=== PATIENT | male | born 1950 | race Hispanic/Latino ===

== ENCOUNTER 2018-03-31 03:44 | Inpatient (IN) | payer BC, MEDICARE ==
[2018-03-31 03:44] VITALS: PULSE 67
[2018-03-31 03:52] VITALS: BMI 36.6
--- NOTE | 2018-03-31 05:34 | ED PDOC ---
Arrival/HPI - General Chief Complaint: Lower Extremity Problem/Injury Time Seen by Provider: 03/31/18 04:09 Historian: Patient - History of Present Illness Narrative History of Present Illness (Text): 03/31/18 05:29 A 67 year old male, whose past medical history includes rheumatoid arthritis, presents to the emergency department complaining of right foot pain starting tonight. Patient reports 3 weeks ago he noticed his foot/ankle and fingers to be swollen. Patient has noticeable blue color to the area, however he states that the coloring is due to his blanket's dye job. Otherwise, since pain/swelling, symptoms worsened. States he took Tylenol Extra Strength and was having relief. However, tonight pain felt worse than usual and he took 2 pills instead of 1, and pain became much worse. He mentions he is unable to put pressure on his right foot in order to ambulate. At this time, while laying in the bed, feels throbbing sensation to foot/ankle. Patient denies any other complaints at this time. NKDA. Past Medical History - Provider Review Nursing Documentation Reviewed: Yes - Infectious Disease Hx of Infectious Diseases: None - Cardiac Hx Cardiac Arrhythmia: Yes (A fib) Hx Pacemaker: No Other/Comment: hx cardioversion - Pulmonary Hx Respiratory Disorders: No - Neurological Hx Paralysis: No - Hematological/Oncological Hx Blood Transfusions: No Hx Blood Transfusion Reaction: No - Musculoskeletal/Rheumatological Hx Musculoskeletal Disorders: Yes (RA) - Gastrointestinal Other/Comment: colonoscopy with 2 polyps removed - Psychiatric Hx Anxiety: Yes Hx Depression: Yes Hx Substance Use: No - Surgical History Other/Comment: small mass removed from back - Anesthesia Hx Anesthesia Reactions: No Hx Malignant Hyperthermia: No - Suicidal Assessment Feels Threatened In Home Enviroment: No Family/Social History - Physician Review Nursing Documentation Reviewed: Yes Family/Social History: No Known Family HX Smoking Status: Unknown If Ever Smoked Hx Alcohol Use: No Hx Substance Use: No Allergies/Home Meds Allergies/Adverse Reactions: Allergies No Known Allergies Allergy (Verified 01/05/13 11:27) Home Medications: Home Meds Medication Instructions Recorded Confirmed Unobtainable 03/31/18 03/31/18 Review of Systems - Physician Review All systems were reviewed & negative as marked: Yes - Review of Systems Constitutional: absent: Fevers Musculoskeletal: Other (right foot pain/swelling; bilateral finger swelling) Physical Exam - Physical Exam Narrative Physical Exam (Text): Gen: VS reviewed, alert, well developed, well nourished, nontoxic, mild distress. ENT: normal pharynx. Eye: EOMI, PERRL. Neck: no JVD, supple, no adenopathy. CV: regular rate, regular rhythm, no rubs, no murmur, no gallops, S1, S2, pulses equal and strong. Pulm: no distress, clear to auscultation, no wheeze, no rhonchi, breath sounds equal, no rales. Abd: soft, nontender, no guarding, no rebound, no rigidity, normal bowel sounds. Ext: questionable edema to right medial ankle area, pain with active plantar flexion of right foot, normal pulses, large callus to lateral aspect of right foot. Skin: good color, no rash, no cyanosis. Psych: responds appropriately to questions, normal affect. Neuro: oriented x 3, CN2-12 intact grossly, motor intact, sensation intact. Vital Signs Temp Pulse Resp BP Pulse Ox 03/31/18 03:52 97.5 F L 106 H 18 152/82 H 97 Medical Decision Making ED Course and Treatment: 03/31/18 05:38 Impression: 67 year old male with right foot/ankle pain. Plan: -- Reassess and disposition Progress Notes: 03/31/18 07:[address] rajan, patient to be admitted for monarticular arthritis. patient found to have a very high wbc. recoommend ortho consult, potential joint aspiration to rule out septic arthritis. - Scribe Statement The provider has reviewed the documentation as recorded by the Miguel Khan Provider Scribe Attestation: All medical record entries made by the Scribjohnna were at my direction and personally dictated by me. I have reviewed the chart and agree that the record accurately reflects my personal performance of the history, physical exam, medical decision making, and the department course for this patient. I have also personally directed, reviewed, and agree with the discharge instructions and disposition. Disposition/Present on Arrival - Present on Arrival Any Indicators Present on Arrival: No History of DVT/PE: No History of Uncontrolled Diabetes: No Urinary Catheter: No History of Decub. Ulcer: No History Surgical Site Infection Following: None - Disposition Have Diagnosis and Disposition been Completed?: Yes Diagnosis: Monoarticular arthritis Disposition: HOSPITALIZED Disposition Time: 07:46 Patient Plan: Admission Condition: STABLE Forms: [employer] (Faroese)
[2018-03-31 06:48] LABS: BASO # 0.02 K/mm3 (0.0-2.0); BASO % 0.1 % (0.0-3.0); GRAN # 18.19 (1.4-6.5); GRAN % 90.1 % (50.0-68.0); HEMOGLOBIN 15.5 g/dL (14.0-18.0); LYMPH # 0.5 (1.2-3.4); LYMPH % 2.5 % (22.0-35.0); MEAN CELL VOLUME 92.4 fl (80.0-105.0); MEAN CORPUSCULAR HEMOGLOBIN 30.9 pg (25.0-35.0); MEAN CORPUSCULAR HGB CONC 33.4 g/dl (31.0-37.0); MEAN PLATELET VOLUME 10.8 fl (7.0-11.0); MONO # 1.5 (0.1-0.6); MONO % 7.3 % (1.0-6.0); PLATELET COUNT 232 10^3/uL (120.0-450.0); RBC 5.02 10^6/uL (3.5-6.1); RED CELL DISTRIBUTION WIDTH 13.4 % (11.5-14.5); WHITE BLOOD COUNT 20.2 10^3/uL (4.5-11.0)
[2018-03-31 06:56] LABS: BLOOD UREA NITROGEN 30 mg/dL (7-21); CALCIUM 9.3 mg/dL (8.4-10.5); GFR NON-AFRICAN AMERICAN > 60; URIC ACID 5.2 mg/dL (3.5-8.5)
[2018-03-31 07:58] LABS: BAND 5 % (0-2); LYMPHOCYTE 3 % (22.0-35.0); MONOCYTE 5 % (1.0-6.0); NEUTROPHIL 87 % (50.0-70.0); PLATELET ESTIMATE NORMAL (NORMAL)
--- NOTE | 2018-03-31 09:38 | RAD ---
Date of service: 03/31/2018 PROCEDURE: Right Ankle Radiographs. HISTORY: pain, focus medial malleolus COMPARISON: None available. FINDINGS: BONES: Normal. No fracture. JOINTS: Normal. No osteoarthritis. Ankle mortise maintained. Talar dome intact SOFT TISSUES: Normal. OTHER FINDINGS: None. IMPRESSION: No acute findings
--- NOTE | 2018-03-31 09:45 | HP ---
DATE OF EXAM: 03/31/2018 CHIEF COMPLAINT AND HISTORY OF PRESENT ILLNESS: This is a 67-year-old male who was coming to the hospital with a past medical history of rheumatoid arthritis presenting with pain in the right ankle. The patient says that last night he was having worsening pain and he had difficulty in ambulating, still the pain was going from the right ankle into the front of the foot. He was not able to put much weight on it due to concerns he might fall. 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 He also has a that he says has been clawing on him and has on his skin. The patient had been taking Tylenol Extra Strength and he was having relief. He was taking 1 to 2 pills, but was using more pills recently. He denies any fevers or chills. No nausea. No vomiting. No abdominal pain or back pain. No dysuria or frequency. No nocturia. REVIEW OF SYSTEMS: All other review of symptoms are within normal limits except as mentioned. ALLERGIES: NO KNOWN DRUG ALLERGIES. SOCIAL HISTORY: The patient does not smoke, drink or use drugs. FAMILY HISTORY: His mother of uterine cancer in her 50s, father of skin cancer in his 50s. He has 2 sisters they both had bladder cancer and eventually . PAST MEDICAL HISTORY: Rheumatoid arthritis and anxiety. HOME MEDICATIONS: None. ALLERGIES: NO KNOWN DRUG ALLERGIES. PHYSICAL EXAMINATION VITAL SIGNS: Temperature is 98.9, pulse of 103, blood pressure 103/60, respirations 18, and O2 saturation is 98%. Height is 6 feet, weight is 270 pounds. BMI is 36.6. GENERAL: The patient is lying in bed, comfortable, and in no acute distress. HEENT: Atraumatic and normocephalic. Anicteric sclerae. Moist mucosa. [place] conjunctivae. No oral lesions. NECK: No JVD, anterior and posterior adenopathy, thyromegaly, or bruits. CARDIOVASCULAR: S1 and S2 regular. No murmurs, rubs or gallops. LUNGS: Clear to auscultation bilaterally. No wheezes, rales, or rhonchi. ABDOMEN: Bowel sounds are positive. Soft, nontender and nondistended. No hepatosplenomegaly. No rebound and no guarding. EXTREMITIES: In the right ankle, there is a decreased range of motion because of pain, there is some mild swelling. The patient has some swelling in the PIP and MCP joints of his right hand. NEUROLOGIC: No facial asymmetry. Tongue is midline. No uvula deviation. Power is 5/5 upper extremities and lower extremities. Sensation intact in upper extremities and lower extremities. PSYCHIATRIC: She is awake, alert and oriented x3. No anxiety or depression. She has normal affect. GENITOURINARY: No CVA tenderness. VASCULAR: 2+ pulses in the carotid pulses and pedal pulses. SKIN: No erythema or nodules SPINE: Shows normal curvature. LABORATORY DATA: White count of 20.2, hemoglobin is 15.5, platelet count is 232. He has sodium 136, potassium 4.4, uric acid is 5.2, creatinine is 1.2. ASSESSMENT: 1. Right ankle swelling. 2. Rheumatoid arthritis. 3. Gait dysfunction. PLAN: The patient is going to be admitted to the hospital with the swelling in his right ankle. He may be having an acute rheumatoid arthritis flare-ups. I do have concerns that he may have a septic joint. I will get Podiatry and Infectious Disease to evaluate the patient. He does have an elevated white count. He is going to need blood cultures and urine cultures. I would also order a chest x-ray to rule out any lung pathology. He will need pain medications. Currently, I will place him on Tylenol. I will also place him on tramadol for moderate pain. Kali Tran MD
--- NOTE | 2018-03-31 10:26 | RAD ---
Date of service: 03/31/2018 HISTORY: elevated WCC COMPARISON: 06/22/2016 TECHNIQUE: Chest PA and lateral FINDINGS: LUNGS: No active pulmonary disease. PLEURA: No significant pleural effusion identified. No pneumothorax apparent. CARDIOVASCULAR: No aortic atherosclerotic calcification present. Normal cardiac size. No pulmonary vascular congestion. OSSEOUS STRUCTURES: No significant abnormalities. VISUALIZED UPPER ABDOMEN: Normal. OTHER FINDINGS: None. IMPRESSION: No active disease.
--- NOTE | 2018-03-31 10:45 | CP.PCM.CON ---
<Kasie Todd - Last Filed: 03/31/18 11:51> History of Present Illness - History of Present Illness History of Present Illness: Podiatry consult note for Dr. Ybarra, 67 year old male, whose past medical history includes rheumatoid arthritis presents to the emergency room. Patient states his ankles and wrists have been very painful and swollen for the last three weeks and has noticed a blue color to the area. Symptoms have worsened in the right ankle since last night, States he took Tylenol Extra Strength and was not having relief. He mentions he is unable to put pressure on his right foot in order to ambulate. States the pain has gotten a lot better since last night. Patient denies any other complaints at this time. Denies f/n/v/sob/chills Pmhx: rheumatoid arthritis Pshx: back surgery Allegies: NKFDA SOcial: denies smoking or drinking alcohol Past Patient History - Infectious Disease Hx of Infectious Diseases: None - Past Social History Smoking Status: Unknown If Ever Smoked - CARDIAC Hx Cardia Arrhythmia: Yes (A fib) Hx Pacemaker: No Other/Comment: hx cardioversion - PULMONARY Hx Respiratory Disorders: No - NEUROLOGICAL Hx Paralysis: No - HEMATOLOGICAL/ONCOLOGICAL Hx Blood Transfusions: No Hx Blood Transfusion Reaction: No - MUSCULOSKELETAL/RHEUMATOLOGICAL Hx Musculoskeletal Disorders: Yes (RA) - GASTROINTESTINAL Other/Comment: colonoscopy with 2 polyps removed - PSYCHIATRIC Hx Anxiety: Yes Hx Depression: Yes Hx Substance Use: No - SURGICAL HISTORY Other/Comment: small mass removed from back - ANESTHESIA Hx Anesthesia Reactions: No Hx Malignant Hyperthermia: No Meds Allergies/Adverse Reactions: Allergies Allergy/AdvReac Type Severity Reaction Status Date / Time No Known Allergies Allergy Verified 01/05/13 11:27 - Medications Medications: Current Medications Acetaminophen (Tylenol 325mg Tab) 650 mg PO Q4H PRN PRN Reason: Pain, Mild (1-3) Enoxaparin Sodium (Lovenox) 40 mg SC DAILY [facility]; Protocol Tramadol HCl (Ultram) 50 mg PO Q6 PRN PRN Reason: Pain, moderate (4-7) Physical Exam - Constitutional Appears: Well, Non-toxic, No Acute Distress - Head Exam Head Exam: ATRAUMATIC, NORMOCEPHALIC - Eye Exam Eye Exam: Normal appearance Pupil Exam: NORMAL ACCOMODATION - ENT Exam ENT Exam: Mucous Membranes Moist - Extremities Exam Additional comments: RIght lower extremity exam: vascular: dp/pt 2/4, CFt <3 secs x 5, TG warm to warm WNL, No edema or erythema noted compared to the contralateral ankle derm: no IDM, no open lesions, varicosities noted on the dorsum of the foot and ankle, no edema or erythema ortho: minimal pain with ROM of the ankle, minimal pain with palpation of the ankle jonit neuro: protective sensation intact via ipswich 06/22 Results - Vital Signs Recent Vital Signs: Last Vital Signs Temp 98.9 F 03/31/18 07:17 Pulse 120 H 03/31/18 09:39 Resp 18 03/31/18 09:39 BP 109/59 L 03/31/18 09:39 Pulse Ox 97 03/31/18 09:39 - Labs Result Diagrams: 03/31/18 06:05 03/31/18 06:05 Labs: Laboratory Results - last 24 hr 03/31/18 03/31/18 06:05 06:05 WBC 20.2 H RBC 5.02 Hgb 15.5 Hct 46.4 MCV 92.4 MCH 30.9 MCHC 33.4 RDW 13.4 Plt Count 232 MPV 10.8 Gran % 90.1 H Lymph % (Auto) 2.5 L [place] % (Auto) 7.3 H Eos % (Auto) 0.0 L Baso % (Auto) 0.1 Gran # 18.19 H Lymph # (Auto) 0.5 L [place] # (Auto) 1.5 H Eos # (Auto) 0.0 Baso # (Auto) 0.02 Neutrophils % (Manual) 87 H Band Neutrophils % 5 H Lymphocytes % (Manual) 3 L Monocytes % (Manual) 5 Platelet Evaluation Normal Sodium 136 Potassium 4.4 Chloride 105 Carbon Dioxide 23 Anion Gap 13 BUN 30 H Creatinine 1.2 Est GFR ( Amer) > 60 Est GFR (Non-Af Amer) > 60 Random Glucose 134 H Uric Acid 5.2 Calcium 9.3 Assessment & Plan - Assessment and Plan (Free Text) Assessment: 67 yo male seen and evaluated for right ankle pain. Plan: Patient seen and evaluated chart, labs and vitals reviewed; leukocytosis and afebrile X-rays reviewed; no signs of osseous erosions, no acute deformity Continue IV antibiotics No signs of active clinical infection of the right ankle Patient will be admitted for leukocytosis and Monitored for a day. If signs and symptoms worsen, right ankle joint aspiration will be performed tomorrow (tuesday) Thank you for the consult Podiatry will continue to monitor the patient <Bertin Ybarra - Last Filed: 03/31/18 17:44> Meds - Medications Medications: Current Medications Acetaminophen (Tylenol 325mg Tab) 650 mg PO Q4H PRN PRN Reason: Pain, Mild (1-3) Atorvastatin Calcium (Lipitor) 10 mg PO HS [facility] Enoxaparin Sodium (Lovenox) 40 mg SC DAILY [facility]; Protocol Piperacillin Sod/Tazobactam Sod (Zosyn 3.375 In Ns 100ml) 100 mls @ 25 mls/hr IVPB Q8 [facility]; Protocol Stop: 04/07/18 14:01 Last Admin: 03/31/18 16:09 Dose: 25 mls/hr Vancomycin HCl 1.5 gm/ Sodium (Chloride) 500 mls @ 167 mls/hr IVPB Q12H [facility]; Protocol Stop: 04/07/18 12:31 Metoprolol Tartrate (Lopressor) 50 mg PO BID [facility] Last Admin: 03/31/18 17:15 Dose: 50 mg Paroxetine HCl (Paxil) 10 mg PO DAILY [facility] Last Admin: 03/31/18 17:15 Dose: 10 mg Rivaroxaban (Xarelto) 20 mg PO DAILY [facility]; Protocol Last Admin: 03/31/18 17:15 Dose: 20 mg Tramadol HCl (Ultram) 50 mg PO Q6 PRN PRN Reason: Pain, moderate (4-7) Verapamil HCl (Calan Sr Tab) 240 mg PO DAILY [facility] Last Admin: 03/31/18 17:23 Dose: 240 mg Results - Vital Signs Recent Vital Signs: Last Vital Signs Temp 99.4 F 03/31/18 13:20 Pulse 125 H 03/31/18 17:23 Resp 18 03/31/18 14:23 BP 147/95 H 03/31/18 17:23 Pulse Ox 97 03/31/18 13:20 - Labs Result Diagrams: 03/31/18 06:05 03/31/18 06:05 Labs: Laboratory Results - last 24 hr 03/31/18 03/31/18 06:05 06:05 WBC 20.2 H RBC 5.02 Hgb 15.5 Hct 46.4 MCV 92.4 MCH 30.9 MCHC 33.4 RDW 13.4 Plt Count 232 MPV 10.8 Gran % 90.1 H Lymph % (Auto) 2.5 L [place] % (Auto) 7.3 H Eos % (Auto) 0.0 L Baso % (Auto) 0.1 Gran # 18.19 H Lymph # (Auto) 0.5 L [place] # (Auto) 1.5 H Eos # (Auto) 0.0 Baso # (Auto) 0.02 Neutrophils % (Manual) 87 H Band Neutrophils % 5 H Lymphocytes % (Manual) 3 L Monocytes % (Manual) 5 Platelet Evaluation Normal Sodium 136 Potassium 4.4 Chloride 105 Carbon Dioxide 23 Anion Gap 13 BUN 30 H Creatinine 1.2 Est GFR ( Amer) > 60 Est GFR (Non-Af Amer) > 60 Random Glucose 134 H Uric Acid 5.2 Calcium 9.3 Attending/Attestation - Attestation I have personally seen and examined this patient.: Yes I have fully participated in the care of the patient.: Yes I have reviewed all pertinent clinical information: Yes
--- NOTE | 2018-03-31 11:24 | CP.PCM.CON ---
<Fern Cheek - Last Filed: 03/31/18 14:05> History of Present Illness - History of Present Illness History of Present Illness: PGY-[address] Hall ID: R/O septic joint Mr Myles, 67 M, with PMHx rheumatoid arthritis with raynaud's phenomenon, off methotrexate, and exposure to feral cats, and a-fib on xarelto, came to ED c/o R foot pain. 3 weeks ago, pt noticed his R foot swelled up with pain. The pain was 3/10 for the past 3 weeks, suddenly worsen last night to 10/10, failed to relieved by 2 tylenol extra strength. Pt is unable to put pressure on his right foot in order to ambulate. At this time, while laying in the bed, feels throbbing sensation to foot/ankle. He was scratched by kitten born to feral cats. Denies any trauma, falls, recent antibiotics, recent travel, recent hospi talization. ROS: Denies f/c, GAITAN, CP, SOB, N/V/D/C, dysuria Food Manager: Dr Arndt, [place] PMH: A-fib s/p cardioversion on verapamil, metoprolol, xarelto rheumatoid arthritis with raynaud's phenomenon, off methotrexate since Summer 2017. Last rheumotology follow up: No need to restart MTX Anxiety/Depression Exposure to feral cats PSH: Cystoscopy (spring 2017) to monitor kidney lesion, unchanged Small mass removed from back colonoscopy with 2 polys removed FH: Mom-uterine ca, dad-skin ca, sister-bladder and throat ca SH: Never smoke. No drug Last drink in 1988. He used to consume beer heavily All: NKDA Med: verapamil, metoprolol, xarelto, paxil, lipitor, SANTOSH In the ED, T afebrile, HR 120, BP 103/60, RR 18, 97RA WBC 20.2, BUN unremarkable: BUN 30, cre 1.2 Uric acid 5.2 Ankle X-ray: No acute findings. CXR: neg Got blood cx, urine cx Admitted for monarticular arthritis. Past Patient History - Infectious Disease Hx of Infectious Diseases: None - Past Social History Smoking Status: Unknown If Ever Smoked - CARDIAC Hx Cardia Arrhythmia: Yes (A fib) Hx Pacemaker: No Other/Comment: hx cardioversion - PULMONARY Hx Respiratory Disorders: No - NEUROLOGICAL Hx Paralysis: No - HEMATOLOGICAL/ONCOLOGICAL Hx Blood Transfusions: No Hx Blood Transfusion Reaction: No - MUSCULOSKELETAL/RHEUMATOLOGICAL Hx Musculoskeletal Disorders: Yes (RA) - GASTROINTESTINAL Other/Comment: colonoscopy with 2 polyps removed - PSYCHIATRIC Hx Anxiety: Yes Hx Depression: Yes Hx Substance Use: No - SURGICAL HISTORY Other/Comment: small mass removed from back - ANESTHESIA Hx Anesthesia Reactions: No Hx Malignant Hyperthermia: No Meds Allergies/Adverse Reactions: Allergies Allergy/AdvReac Type Severity Reaction Status Date / Time No Known Allergies Allergy Verified 01/05/13 11:27 - Medications Medications: Current Medications Acetaminophen (Tylenol 325mg Tab) 650 mg PO Q4H PRN PRN Reason: Pain, Mild (1-3) Enoxaparin Sodium (Lovenox) 40 mg SC DAILY [facility]; Protocol Tramadol HCl (Ultram) 50 mg PO Q6 PRN PRN Reason: Pain, moderate (4-7) Physical Exam - Constitutional Appears: No Acute Distress - Head Exam Head Exam: ATRAUMATIC, NORMAL INSPECTION, NORMOCEPHALIC - Eye Exam Eye Exam: EOMI, Normal appearance - ENT Exam ENT Exam: Mucous Membranes Moist - Neck Exam Neck exam: Positive for: Normal Inspection - Respiratory Exam Respiratory Exam: Clear to Auscultation Bilateral, NORMAL BREATHING PATTERN. absent: Rales, Rhonchi, Wheezes - Cardiovascular Exam Cardiovascular Exam: REGULAR RHYTHM, +S1, +S2. absent: Systolic Murmur - GI/Abdominal Exam GI & Abdominal Exam: Normal Bowel Sounds, Soft. absent: Distended, Firm, Rigid, Tenderness - Extremities Exam Extremities exam: Positive for: pedal edema, pedal pulses present. Negative for: calf tenderness Additional comments: induration with fluctuence, R lateral foot. Erythema - Back Exam Back exam: absent: CVA tenderness (L) - Neurological Exam Neurological exam: Alert, Oriented x3 - Psychiatric Exam Psychiatric exam: Normal Affect, Normal Mood - Skin Skin Exam: Dry, Warm Results - Vital Signs Recent Vital Signs: Last Vital Signs Temp 98.9 F 03/31/18 07:17 Pulse 120 H 03/31/18 09:39 Resp 18 03/31/18 09:39 BP 109/59 L 03/31/18 09:39 Pulse Ox 97 03/31/18 09:39 - Labs Result Diagrams: 03/31/18 06:05 03/31/18 06:05 Labs: Laboratory Results - last 24 hr 03/31/18 03/31/18 06:05 06:05 WBC 20.2 H RBC 5.02 Hgb 15.5 Hct 46.4 MCV 92.4 MCH 30.9 MCHC 33.4 RDW 13.4 Plt Count 232 MPV 10.8 Gran % 90.1 H Lymph % (Auto) 2.5 L [place] % (Auto) 7.3 H Eos % (Auto) 0.0 L Baso % (Auto) 0.1 Gran # 18.19 H Lymph # (Auto) 0.5 L [place] # (Auto) 1.5 H Eos # (Auto) 0.0 Baso # (Auto) 0.02 Neutrophils % (Manual) 87 H Band Neutrophils % 5 H Lymphocytes % (Manual) 3 L Monocytes % (Manual) 5 Platelet Evaluation Normal Sodium 136 Potassium 4.4 Chloride 105 Carbon Dioxide 23 Anion Gap 13 BUN 30 H Creatinine 1.2 Est GFR ( Amer) > 60 Est GFR (Non-Af Amer) > 60 Random Glucose 134 H Uric Acid 5.2 Calcium 9.3 Assessment & Plan - Assessment and Plan (Free Text) Plan: Mr Myles, 67 M, with PMHx rheumatoid arthritis with raynaud's phenomenon, off methotrexate, and exposure to feral cats, and a-fib on xarelto, came to ED c/o R foot pain. A: Sepsis (HR 103, WBC 20) likely due to R foot abscess with overlying cellulitis Unlikely osteomyelitis Exposure to feral cats. Scratched by kitten P: Vancomycin and zosyn (day 1) follow blood and wound culture plan to I&D by podiatry tomorrow Lab/imaging: Uric acid 5.2 Ankle X-ray: No acute findings. Podiatry: No sign of osseous erosion CXR: neg s/r/d/w Dr Hall <Lauri Hall S - Last Filed: 03/31/18 15:48> Meds - Medications Medications: Current Medications Acetaminophen (Tylenol 325mg Tab) 650 mg PO Q4H PRN PRN Reason: Pain, Mild (1-3) Enoxaparin Sodium (Lovenox) 40 mg SC DAILY [facility]; Protocol Piperacillin Sod/Tazobactam Sod (Zosyn 3.375 In Ns 100ml) 100 mls @ 25 mls/hr IVPB Q8 [facility]; Protocol Stop: 04/07/18 14:01 Vancomycin HCl 1.75 gm/ Sodium (Chloride) 500 mls @ 167 mls/hr IVPB Q12H [facility] Stop: 04/07/18 12:31 Last Admin: 03/31/18 12:55 Dose: 167 mls/hr Tramadol HCl (Ultram) 50 mg PO Q6 PRN PRN Reason: Pain, moderate (4-7) Results - Vital Signs Recent Vital Signs: Last Vital Signs Temp 99.4 F 03/31/18 13:20 Pulse 136 H 03/31/18 14:23 Resp 18 03/31/18 14:23 BP 118/70 03/31/18 13:20 Pulse Ox 97 03/31/18 13:20 - Labs Result Diagrams: 03/31/18 06:05 03/31/18 06:05 Labs: Laboratory Results - last 24 hr 03/31/18 03/31/18 06:05 06:05 WBC 20.2 H RBC 5.02 Hgb 15.5 Hct 46.4 MCV 92.4 MCH 30.9 MCHC 33.4 RDW 13.4 Plt Count 232 MPV 10.8 Gran % 90.1 H Lymph % (Auto) 2.5 L [place] % (Auto) 7.3 H Eos % (Auto) 0.0 L Baso % (Auto) 0.1 Gran # 18.19 H Lymph # (Auto) 0.5 L [place] # (Auto) 1.5 H Eos # (Auto) 0.0 Baso # (Auto) 0.02 Neutrophils % (Manual) 87 H Band Neutrophils % 5 H Lymphocytes % (Manual) 3 L Monocytes % (Manual) 5 Platelet Evaluation Normal Sodium 136 Potassium 4.4 Chloride 105 Carbon Dioxide 23 Anion Gap 13 BUN 30 H Creatinine 1.2 Est GFR ( Amer) > 60 Est GFR (Non-Af Amer) > 60 Random Glucose 134 H Uric Acid 5.2 Calcium 9.3 Assessment & Plan - Assessment and Plan (Free Text) Plan: Infectious diseases Attending Physician Attestation Patient seen and examined, discussed with medical specialist. I have reviewed the patient's history of present illness, past medical, social, personal and family histories, pertinent physical exam findings, course so far in this hospital admission, pertinent laboratory and imaging results. I agree with the above findings, assessment and plan. In addition, will start IV Vancomycin and Zosyn for patient with sepsis due to right foot skin and skin structure infection, probably abscess. Will need I and D and Podiatry is on the case. Will follow up abscess cultures and blood cx.
[2018-03-31] MEDS ORDERED: Vancomycin 500 mg Inj IVPB SCH (12:15)
[2018-03-31] MEDS ORDERED: Vancomycin 1.75 GM in Sodium Chloride 0.9% 500 ML IVPB SCH (12:30)
[2018-03-31] MEDS ORDERED: Piperacillin/Tazobact 3.375 gm 100 ML IVPB SCH (14:00)
[2018-03-31] MEDS ORDERED: Influenza Vaccine 60 mcg/0.5 mL SYR (4YR UP) IM ONE (15:02)
[2018-03-31] MEDS ORDERED: Pneumococcal 23-Valent Vaccine IM ONE (15:02)
[2018-03-31] MEDS ORDERED: Vancomycin 1.5 GM in Sodium Chloride 0.9% 500 ML IVPB SCH (15:50)
[2018-03-31] MEDS: Verapamil 240 mg ER Tab PO SCH (17:23)
--- NOTE | 2018-03-31 20:07 | CARD ---
APPROVED REPORT Date of service: 03/31/2018 EKG Measurement Heart [id number] <Conclusion> Atrial fibrillation with rapid ventricular response Moderate voltage criteria for LVH, may be normal variant Nonspecific ST and T wave abnormality, probably digitalis effect Abnormal ECG
[2018-03-31] MEDS: Vancomycin 1.5 GM in Sodium Chloride 0.9% 500 ML IVPB SCH (21:28)
[2018-04-01] MEDS ORDERED: Piperacillin/Tazobact 3.375 gm 100 ML IVPB SCH
[2018-04-01] MEDS: Piperacillin/Tazobact 3.375 gm 100 ML IVPB SCH ×3 (00:04→16:17)
[2018-04-01] MEDS ORDERED: Vancomycin 1.5 GM in Sodium Chloride 0.9% 500 ML IVPB SCH (00:30)
[2018-04-01 06:49] LABS: HEMOGLOBIN 13.5 g/dL (14.0-18.0); MEAN CELL VOLUME 92.7 fl (80.0-105.0); MEAN CORPUSCULAR HEMOGLOBIN 30.8 pg (25.0-35.0); MEAN CORPUSCULAR HGB CONC 33.2 g/dl (31.0-37.0); MEAN PLATELET VOLUME 10.9 fl (7.0-11.0); RBC 4.39 10^6/uL (3.5-6.1); RED CELL DISTRIBUTION WIDTH 13.6 % (11.5-14.5); WHITE BLOOD COUNT 14.9 10^3/uL (4.5-11.0)
--- NOTE | 2018-04-01 08:14 | PN ---
DATE: 04/01/2018 SUBJECTIVE: The patient says his right ankle is feeling better. He has no complaints of any chest pain, shortness of breath or headaches. PHYSICAL EXAMINATION: VITAL SIGNS: Temperature is 98, pulse of 88, blood pressure 152/92, respirations 18. GENERAL: The patient is lying in bed, flat, comfortable. HEENT: No oral lesion. Anicteric sclerae. Moist mucosa. NECK: No JVD, adenopathy, or thyromegaly. CARDIOVASCULAR: S1 and S2, regular. No murmurs, rubs, or gallops. LUNGS: Clear to auscultation bilaterally. No wheeze, rales, or rhonchi. ABDOMEN: Bowel sounds are positive, soft, nontender and nondistended. EXTREMITIES: no cyanosis, clubbing or edema. LABORATORY DATA: White count yesterday was 20.2. ASSESSMENT: 1. Right ankle swelling, rule out septic joint. 2. Rheumatoid arthritis. 3. Gait dysfunction. 4. Atrial fibrillation, on Xarelto. 5. Sepsis. 6. Dyslipidemia. PLAN: The patient is currently comfortable. The patient is on IV antibiotics. His heart rate is better controlled. He has urine cultures and blood cultures that are pending. The patient is on Lipitor for dyslipidemia. The patient is on anticoagulation which is also his DVT prophylaxis. He is on Paxil daily. He is receiving Tylenol as needed. He is on Ultram for pain. He is on Xarelto for his anticoagulation. He is on a heart healthy diet. I will discontinue telemetry monitoring at this point. His heart rate is better. Kali Tran MD
[2018-04-01] MEDS: Verapamil 240 mg ER Tab PO SCH (09:37)
[2018-04-01] MEDS ORDERED: Enoxaparin 40 mg Syringe SC SCH (10:00)
--- NOTE | 2018-04-01 10:25 | CP.PCM.PN ---
<Rogerio Foster - Last Filed: 04/01/18 10:21> Subjective - Date & Time of Evaluation Date of Evaluation: 04/01/18 Time of Evaluation: 10:21 - Subjective Subjective: Podiatry progress note for Dr. Ybarra 67M seen and evaluated at bedside with Dr. Ybarra. Patient seen resting comfortably but still admits to mild pain and discomfort in the right ankle. States that he does feel better since admission. States he is able to move his ankle up and down but there is still mild pain associated. Denies N/V/F/C/SOB/CP and has no other acute complaints. Objective - Vital Signs/Intake and Output Vital Signs (last 24 hours): Temp Pulse Resp BP Pulse Ox 98 F 98 H 18 144/92 H 95 04/01/18 05:44 04/01/18 09:37 04/01/18 05:44 04/01/18 09:37 04/01/18 05:44 Intake and Output: 04/01/18 04/01/18 06:59 18:59 Intake Total 1500 Output Total 1800 Balance -300 - Medications Medications: Current Medications Acetaminophen (Tylenol 325mg Tab) 650 mg PO Q4H PRN PRN Reason: Pain, Mild (1-3) Atorvastatin Calcium (Lipitor) 10 mg PO HS [facility] Last Admin: 03/31/18 21:27 Dose: 10 mg Vancomycin HCl 1.5 gm/ Sodium (Chloride) 500 mls @ 167 mls/hr IVPB Q12H [facility]; Protocol Stop: 04/07/18 12:31 Last Admin: 03/31/18 21:28 Dose: 167 mls/hr Piperacillin Sod/Tazobactam Sod (Zosyn 3.375 In Ns 100ml) 100 mls @ 25 mls/hr IVPB 0000,0800,1600 [facility]; Protocol Last Admin: 04/01/18 08:52 Dose: 25 mls/hr Metoprolol Tartrate (Lopressor) 50 mg PO BID [facility] Last Admin: 04/01/18 09:37 Dose: 50 mg Paroxetine HCl (Paxil) 10 mg PO DAILY [facility] Last Admin: 04/01/18 09:37 Dose: 10 mg Rivaroxaban (Xarelto) 20 mg PO DAILY [facility]; Protocol Last Admin: 04/01/18 09:37 Dose: 20 mg Tramadol HCl (Ultram) 50 mg PO Q6 PRN PRN Reason: Pain, moderate (4-7) Verapamil HCl (Calan Sr Tab) 240 mg PO DAILY [facility] Last Admin: 04/01/18 09:37 Dose: 240 mg - Labs Labs: 04/01/18 06:00 03/31/18 06:05 - Constitutional Appears: Well, Non-toxic, No Acute Distress - Head Exam Head Exam: ATRAUMATIC, NORMOCEPHALIC - Extremities Exam Additional comments: RLE focused vascular: dp/pt 2/4, CFt <3 secs x 5, TG warm to warm WNL, No edema or erythema noted compared to the contralateral ankle derm: no IDM, no open lesions, varicosities noted on the dorsum of the foot and ankle, no edema or erythema ortho: minimal pain with ROM of the ankle, minimal pain with palpation of the ankle joint neuro: protective sensation intact via ipswich 06/22 - Neurological Exam Neurological Exam: Alert, Awake, Oriented x3 - Psychiatric Exam Psychiatric exam: Normal Affect, Normal Mood Assessment and Plan - Assessment and Plan (Free Text) Assessment: 67M with right ankle pain. Plan: Patient seen and evaluated with Dr. Ybarra Afebrile, WBC trending down from 20.2 (03/31) to 14.9 today X-rays reviewed; no signs of osseous erosions, no acute deformity Continue IV antibiotics No signs of active clinical infection of the right ankle Reluctant to aspirate joint as WBC gone down with IV abx, consider aspiration if WBC does not continue to trend downward Podiatry will continue to monitor the patient <Bertin Ybarra - Last Filed: 04/04/18 09:45> Objective - Vital Signs/Intake and Output Vital Signs (last 24 hours): Temp Pulse Resp BP Pulse Ox 98.3 F 74 20 153/97 H 95 04/04/18 06:00 04/04/18 06:00 04/04/18 06:00 04/04/18 06:00 04/04/18 06:00 Intake and Output: 04/04/18 04/04/18 06:59 18:59 Intake Total 1780 Output Total 800 Balance 980 - Medications Medications: Current Medications Acetaminophen (Tylenol 325mg Tab) 650 mg PO Q4H PRN PRN Reason: Pain, Mild (1-3) Atorvastatin Calcium (Lipitor) 10 mg PO HS [facility] Last Admin: 04/03/18 21:38 Dose: 10 mg Vancomycin HCl 1.5 gm/ Sodium (Chloride) 500 mls @ 167 mls/hr IVPB Q12H [facility]; Protocol Stop: 04/07/18 12:31 Last Admin: 04/03/18 21:38 Dose: 167 mls/hr Levalbuterol HCl (Xopenex) 0.63 mg IH [id number] PRN PRN Reason: Shortness of Breath Last Admin: 04/02/18 15:39 Dose: 0.63 mg Metoprolol Tartrate (Lopressor) 50 mg PO BID [facility] Last Admin: 04/03/18 17:13 Dose: 50 mg Paroxetine HCl (Paxil) 10 mg PO DAILY [facility] Last Admin: 04/03/18 10:06 Dose: 10 mg Rivaroxaban (Xarelto) 20 mg PO DAILY [facility]; Protocol Last Admin: 04/03/18 10:06 Dose: 20 mg Tramadol HCl (Ultram) 50 mg PO Q6 PRN PRN Reason: Pain, moderate (4-7) Verapamil HCl (Calan Sr Tab) 240 mg PO DAILY [facility] Last Admin: 04/03/18 10:07 Dose: 240 mg - Labs Labs: 04/04/18 06:30 04/04/18 06:30 Attending/Attestation - Attestation I have personally seen and examined this patient.: Yes I have fully participated in the care of the patient.: Yes I have reviewed all pertinent clinical information, including history, physical exam and plan: Yes
[2018-04-01] MEDS: Vancomycin 1.5 GM in Sodium Chloride 0.9% 500 ML IVPB SCH ×2 (11:45→22:23)
--- NOTE | 2018-04-01 19:08 | PN ---
DATE: 04/01/2018 SUBJECTIVE: The patient is in bed, in no acute distress this morning, still having ankle pain. PHYSICAL EXAMINATION: VITAL SIGNS: Temperature is 100.5, blood pressure of 130/80, respiratory rate of 18, heart rate of 74. HEENT: Unremarkable. NECK: Supple. LUNGS: Have decreased breath sounds. HEART: Normal S1 and S2. ABDOMEN: Soft, nontender. LABORATORY EXAMINATION: Reveals a white count of 14,900; hemoglobin of 13. Creatinine is noted to be 1.2. Random glucose of 134. Blood cultures are reported to be negative. IMAGING: Reveals the patient had an x-ray of the ankle, which is noted to have no impression. REVIEW OF ORDERS: Reveals the patient to be on vancomycin and Zosyn. ASSESSMENT AND PLAN: This is a 67-year-old male with rheumatoid arthritis, Raynaud's phenomenon, had been on methotrexate for a long time, and he has complained of right foot pain with sepsis, right foot cellulitis and ankle pain, on vancomycin and Zosyn day #2. We will order a CAT scan of the right foot and right ankle without contrast, and we will follow with you. Riaz Elkins MD
[2018-04-02] MEDS: Piperacillin/Tazobact 3.375 gm 100 ML IVPB SCH ×4 (01:14→23:15)
[2018-04-02] MEDS: Vancomycin 1.5 GM in Sodium Chloride 0.9% 500 ML IVPB SCH ×2 (11:33→21:32)
[2018-04-02] MEDS: Verapamil 240 mg ER Tab PO SCH (11:33)
[2018-04-02 13:05] LABS: BASO # 0.05 K/mm3 (0.0-2.0); BASO % 0.4 % (0.0-3.0); EOS # 0.2 (0.0-0.7); EOS % 1.6 % (1.5-5.0); GRAN # 9.5 (1.4-6.5); GRAN % 79.3 % (50.0-68.0); HEMOGLOBIN 14.6 g/dL (14.0-18.0); LYMPH # 1.4 (1.2-3.4); LYMPH % 11.9 % (22.0-35.0); MEAN CELL VOLUME 94.4 fl (80.0-105.0); MEAN CORPUSCULAR HEMOGLOBIN 31.3 pg (25.0-35.0); MEAN CORPUSCULAR HGB CONC 33.1 g/dl (31.0-37.0); MEAN PLATELET VOLUME 10.9 fl (7.0-11.0); MONO # 0.8 (0.1-0.6); MONO % 6.8 % (1.0-6.0); RBC 4.67 10^6/uL (3.5-6.1); RED CELL DISTRIBUTION WIDTH 13.7 % (11.5-14.5)
--- NOTE | 2018-04-02 14:09 | PN ---
DATE: 04/02/2018 SUBJECTIVE: The patient seen earlier today. He did have an episode of fever yesterday; however, this morning he is afebrile. His foot pain is much improved. He is awake and alert. PHYSICAL EXAMINATION: VITAL SIGNS: Temperature is 98, T-max is 100.5, heart rate of 74, respiratory rate of 20, blood pressure is 130/80. HEENT: Unremarkable. NECK: Supple. LUNGS: Have decreased breath sounds. HEART: Normal, S1 and S2. ABDOMEN: Soft. LABORATORY DATA: Examination reveals blood cultures negative, urine cultures negative. White count is down to 14,900, hemoglobin of 13. The patient does have 5% bandemia. Chemistries reveal creatinine is 1.2. Microbiology reveals the blood cultures have no growth, urine culture have no growth. MEDICATIONS: Review of orders reveals the patient to be on vancomycin and Zosyn. ASSESSMENT AND PLAN: The patient's vancomycin is given at 10 a.m. and 10 p.m. We will check on vancomycin level at 9 p.m. tonight, an hour before to next dose. Awaiting for CAT scan of the foot and CAT scan of the ankle, which has been ordered; however, has not been done as of this morning. We will follow with you. Riaz Elkins MD
--- NOTE | 2018-04-02 14:26 | CT ---
Date of service: 04/02/2018 PROCEDURE: CT right lower extremity. Attention ankle and foot HISTORY: right foot /ankle osteo COMPARISON: 03/31/2018. Right 2.5 mm axial acquisition and display. Coronal and sagittal reconstructions. Dose report (mGy-cm): ankle radiographs. TECHNIQUE: 2.5 mm axial acquisition and display. Coronal and sagittal reconstructions. Dose report (mGy-cm): 1020.55 FINDINGS: Diffuse soft tissue swelling, cellulitis. No evidence of acute fracture. Posttraumatic changes talonavicular joint. Accessory ossicle/posttraumatic change adjacent to the base of the 5th metatarsal. No compelling evidence for osteomyelitis. No Lisfranc injury noted. IMPRESSION: Cellulitis without osteomyelitis. Posttraumatic/degenerative change.
[2018-04-02] MEDS ORDERED: Levalbuterol 0.63 MG/3 ML Inhal Soln UD IH PRN (14:37)
--- NOTE | 2018-04-03 05:30 | CP.PCM.PN ---
<Orin Rodriguez - Last Filed: 04/03/18 14:58> Subjective - Date & Time of Evaluation Date of Evaluation: 04/03/18 Time of Evaluation: 07:00 - Subjective Subjective: Pgy3 Medicine Progress note for Dr. Tran Patient seen and examinend at bedside. Reports patient his R ankle pain has greatly improved and is now 1-2/10 in intensity. He also reported improved movement and mobility in his right ankle and decreased swelling. He has been unable to ambulate however and is looking forward to working with physical therapy and is open to [facility] upon discharge. Patient denied acute complaints fever, chills, chest pain, palpitations, SOB, cough, abd pain, nausea, vomiting, bowel/bladder complaints. Objective - Vital Signs/Intake and Output Vital Signs (last 24 hours): Temp Pulse Resp BP Pulse Ox 98.9 F 64 20 132/85 97 04/02/18 23:12 04/02/18 23:12 04/02/18 23:12 04/02/18 23:12 04/02/18 23:12 - Medications Medications: Current Medications Acetaminophen (Tylenol 325mg Tab) 650 mg PO Q4H PRN PRN Reason: Pain, Mild (1-3) Atorvastatin Calcium (Lipitor) 10 mg PO HS [facility] Last Admin: 04/02/18 21:33 Dose: 10 mg Vancomycin HCl 1.5 gm/ Sodium (Chloride) 500 mls @ 167 mls/hr IVPB Q12H [facility]; Protocol Stop: 04/07/18 12:31 Last Admin: 04/02/18 21:32 Dose: 167 mls/hr Piperacillin Sod/Tazobactam Sod (Zosyn 3.375 In Ns 100ml) 100 mls @ 25 mls/hr IVPB 0000,0800,1600 [facility]; Protocol Last Admin: 04/02/18 23:15 Dose: 25 mls/hr Levalbuterol HCl (Xopenex) 0.63 mg IH [id number] PRN PRN Reason: Shortness of Breath Last Admin: 04/02/18 15:39 Dose: 0.63 mg Metoprolol Tartrate (Lopressor) 50 mg PO BID [facility] Last Admin: 04/02/18 17:19 Dose: 50 mg Paroxetine HCl (Paxil) 10 mg PO DAILY [facility] Last Admin: 04/02/18 11:33 Dose: 10 mg Rivaroxaban (Xarelto) 20 mg PO DAILY [facility]; Protocol Last Admin: 04/02/18 11:33 Dose: 20 mg Tramadol HCl (Ultram) 50 mg PO Q6 PRN PRN Reason: Pain, moderate (4-7) Verapamil HCl (Calan Sr Tab) 240 mg PO DAILY [facility] Last Admin: 04/02/18 11:33 Dose: 240 mg - Labs Labs: 04/02/18 12:30 03/31/18 06:05 - Constitutional Appears: Non-toxic, No Acute Distress - Head Exam Head Exam: ATRAUMATIC, NORMAL INSPECTION, NORMOCEPHALIC - Eye Exam Eye Exam: EOMI, Normal appearance, Scleral icterus. absent: Conjunctival injection - ENT Exam ENT Exam: Mucous Membranes Moist - Neck Exam Neck Exam: Full ROM. absent: Lymphadenopathy - Respiratory Exam Respiratory Exam: Clear to Ausculation Bilateral, NORMAL BREATHING PATTERN. absent: Accessory Muscle Use, Rales, Rhonchi, Wheezes, Respiratory Distress - Cardiovascular Exam Cardiovascular Exam: Irregular Rhythm, +S1, +S2 - GI/Abdominal Exam GI & Abdominal Exam: Soft, Normal Bowel Sounds. absent: Firm, Guarding, Rigid, Tenderness - Rectal Exam Rectal Exam: Deferred - Extremities Exam Extremities Exam: Normal Capillary Refill Additional comments: R ankle erythema and swelling noted - Neurological Exam Neurological Exam: Alert, Awake, Oriented x3 - Psychiatric Exam Psychiatric exam: Normal Affect, Normal Mood - Skin Skin Exam: Dry, Intact, Normal Color, Warm Assessment and Plan - Assessment and Plan (Free Text) Assessment: 1. Right ankle pain/swelling 2. Rheumatoid arthritis 3. Gait dysfunction 4. Atrial fibrillation on xarelto 5. Sepsis 6. Dysplipidemia 7. HTN 8. Depression/Anxiety Plan: Patient's lab work, imaging, and vitals reviewed. Patient reports marked improvement in pain and mobility of R ankle. He is on Vancomycin day #4 and Zosyn day #3 as per ID reccs. WBC wnl and has trended down since admission. Right ankle xray reviewed which was unremarkable. RLE CT showed evidence of cellulitis without osteomyelitis and posttraumatic/degenerative changes. Will f/u MRI of R ankle. No need to tap joint at this time due to minimal swelling. Patient is having difficulty ambulating due to the pain and has been encouraged to work with PT both during admission and in [facility] upon discharge. Patient to continue home medications for HTN and monitor BP closely. Patient to also continue taking home statin. Will continue xarelto for patient's Afib and paxil for depression/anxiety. Appreciate reccs from podiatry, cardiology, and ID. Patient does not qualify for TCU due to insurance and will be discharged to [facility]. workers compensation administrator on board and patient is aware and agreeable to plan. Discussed with Dr. Marc Rodriguez PGY3 <Kali Tran S - Last Filed: 04/03/18 19:06> Objective - Vital Signs/Intake and Output Vital Signs (last 24 hours): Temp Pulse Resp BP Pulse Ox 98.1 F 101 H 20 143/96 H 96 04/03/18 14:00 04/03/18 17:13 04/03/18 14:00 04/03/18 17:13 04/03/18 14:00 - Medications Medications: Current Medications Acetaminophen (Tylenol 325mg Tab) 650 mg PO Q4H PRN PRN Reason: Pain, Mild (1-3) Atorvastatin Calcium (Lipitor) 10 mg PO HS [facility] Last Admin: 04/02/18 21:33 Dose: 10 mg Vancomycin HCl 1.5 gm/ Sodium (Chloride) 500 mls @ 167 mls/hr IVPB Q12H [facility]; Protocol Stop: 04/07/18 12:31 Last Admin: 04/03/18 10:18 Dose: 167 mls/hr Piperacillin Sod/Tazobactam Sod (Zosyn 3.375 In Ns 100ml) 100 mls @ 25 mls/hr IVPB 0000,0800,1600 [facility]; Protocol Last Admin: 04/03/18 08:27 Dose: 25 mls/hr Levalbuterol HCl (Xopenex) 0.63 mg IH [id number] PRN PRN Reason: Shortness of Breath Last Admin: 04/02/18 15:39 Dose: 0.63 mg Metoprolol Tartrate (Lopressor) 50 mg PO BID [facility] Last Admin: 04/03/18 17:13 Dose: 50 mg Paroxetine HCl (Paxil) 10 mg PO DAILY [facility] Last Admin: 04/03/18 10:06 Dose: 10 mg Rivaroxaban (Xarelto) 20 mg PO DAILY [facility]; Protocol Last Admin: 04/03/18 10:06 Dose: 20 mg Tramadol HCl (Ultram) 50 mg PO Q6 PRN PRN Reason: Pain, moderate (4-7) Verapamil HCl (Calan Sr Tab) 240 mg PO DAILY [facility] Last Admin: 04/03/18 10:07 Dose: 240 mg - Labs Labs: 04/03/18 11:00 04/03/18 11:00 Assessment and Plan - Assessment and Plan (Free Text) Plan: Pt seen and examined by me. I have reviewed the note of the certified medical coder and I agree with it. I have discussed the assessment and plan with the resident. I have reviewed the medications and the last labs. The pt had sepsis and it was felt that the ankle may be the source. The pt has rheumatoid arthritis and it is under control. He was not able to ambulate on admission and is still having difficulty. He was offered [facility]. I spoke to the SW and special education case manager about [facility] for the pt. He is having better pain control. Heis on Xarelto for A fib. CT of the ankle was reviewed by me.
[2018-04-03] MEDS: Piperacillin/Tazobact 3.375 gm 100 ML IVPB SCH ×2 (08:27→17:00)
--- NOTE | 2018-04-03 09:13 | PN ---
DATE: 04/02/2018 SUBJECTIVE: The patient has no complaints of any chest pain, shortness of breath. He says that his right heel and ankle are improving. He is able to move his toes. He says the pain is improved. PHYSICAL EXAMINATION VITAL SIGNS: Temperature is 98.2, pulse is 70, blood pressure 160/90 and respirations 20. GENERAL: The patient is lying in bed, flat, comfortable. HEENT: No oral lesion. Anicteric sclerae. Moist mucosa. NECK: No JVD, adenopathy, or thyromegaly. CARDIOVASCULAR: S1 and S2, regular. No murmurs, rubs, or gallops. LUNGS: Clear to auscultation bilaterally. No wheeze, rales, or rhonchi. ABDOMEN: Bowel sounds are positive, soft, nontender and nondistended. EXTREMITIES: No cyanosis, clubbing or edema. LABORATORY DATA: White count of 14.9 and hemoglobin 13.5. Creatinine is 1.2. ASSESSMENT: 1. Right ankle pain/swelling. 2. Rheumatoid arthritis. 3. Gait dysfunction. 4. Atrial fibrillation on Xarelto. 5. Sepsis. 6. Dyslipidemia. PLAN: The patient is currently comfortable. He is on vancomycin and Zosyn, today is day #3. He has a CAT scan that has been ordered and the patient is waiting to get it done. The patient is on Paxil for his anxiety. He is on Xarelto this will be continued. He is going to continue with Lipitor for dyslipidemia. He is on verapamil for his atrial fibrillation as well. If the patient's CAT scan does not show any osteomyelitis or any significant swelling, we will plan on discharging the patient on p.o. antibiotics. . Kali Tran MD
[2018-04-03] MEDS: Verapamil 240 mg ER Tab PO SCH (10:07)
[2018-04-03] MEDS: Vancomycin 1.5 GM in Sodium Chloride 0.9% 500 ML IVPB SCH ×2 (10:18→21:38)
[2018-04-03 11:15] LABS: BASO # 0.05 K/mm3 (0.0-2.0); BASO % 0.5 % (0.0-3.0); EOS # 0.2 (0.0-0.7); GRAN # 8.31 (1.4-6.5); GRAN % 75.8 % (50.0-68.0); HEMOGLOBIN 14.8 g/dL (14.0-18.0); LYMPH # 1.4 (1.2-3.4); MEAN CELL VOLUME 94.1 fl (80.0-105.0); MEAN CORPUSCULAR HEMOGLOBIN 31.2 pg (25.0-35.0); MEAN CORPUSCULAR HGB CONC 33.1 g/dl (31.0-37.0); MEAN PLATELET VOLUME 10.3 fl (7.0-11.0); MONO % 8.7 % (1.0-6.0); RBC 4.75 10^6/uL (3.5-6.1); RED CELL DISTRIBUTION WIDTH 13.4 % (11.5-14.5)
[2018-04-03 11:24] LABS: ALT/SGPT 37 U/L (7-56); AST/SGOT 40 U/L (17-59); BLOOD UREA NITROGEN 19 mg/dL (7-21); CALCIUM 9.6 mg/dL (8.4-10.5); GFR NON-AFRICAN AMERICAN > 60
--- NOTE | 2018-04-03 13:09 | CP.PCM.PN ---
Subjective - Date & Time of Evaluation Date of Evaluation: 04/03/18 Time of Evaluation: 13:07 - Subjective Subjective: Podiatry progress note for Dr. Odonnell/dolores BellaM seen and evaluated at bedside. Patient seen resting comfortably but still admits to mild pain and discomfort in the right ankle. Admits to minimal pain with ROM of the ankle joint. States the swelling and redness has increased in the right foot. Denies N/V/F/C/SOB/CP and has no other acute complaints. Objective - Vital Signs/Intake and Output Vital Signs (last 24 hours): Temp Pulse Resp BP Pulse Ox 98 F 81 21 166/96 H 96 04/03/18 06:00 04/03/18 10:07 04/03/18 06:00 04/03/18 10:07 04/03/18 06:00 - Medications Medications: Current Medications Acetaminophen (Tylenol 325mg Tab) 650 mg PO Q4H PRN PRN Reason: Pain, Mild (1-3) Atorvastatin Calcium (Lipitor) 10 mg PO HS [facility] Last Admin: 04/02/18 21:33 Dose: 10 mg Vancomycin HCl 1.5 gm/ Sodium (Chloride) 500 mls @ 167 mls/hr IVPB Q12H [facility]; Protocol Stop: 04/07/18 12:31 Last Admin: 04/03/18 10:18 Dose: 167 mls/hr Piperacillin Sod/Tazobactam Sod (Zosyn 3.375 In Ns 100ml) 100 mls @ 25 mls/hr IVPB 0000,0800,1600 [facility]; Protocol Last Admin: 04/03/18 08:27 Dose: 25 mls/hr Levalbuterol HCl (Xopenex) 0.63 mg IH [id number] PRN PRN Reason: Shortness of Breath Last Admin: 04/02/18 15:39 Dose: 0.63 mg Metoprolol Tartrate (Lopressor) 50 mg PO BID [facility] Last Admin: 04/03/18 10:06 Dose: 50 mg Paroxetine HCl (Paxil) 10 mg PO DAILY [facility] Last Admin: 04/03/18 10:06 Dose: 10 mg Rivaroxaban (Xarelto) 20 mg PO DAILY [facility]; Protocol Last Admin: 04/03/18 10:06 Dose: 20 mg Tramadol HCl (Ultram) 50 mg PO Q6 PRN PRN Reason: Pain, moderate (4-7) Verapamil HCl (Calan Sr Tab) 240 mg PO DAILY [facility] Last Admin: 04/03/18 10:07 Dose: 240 mg - Labs Labs: 04/03/18 11:00 04/03/18 11:00 - Constitutional Appears: Well, Non-toxic, No Acute Distress - Head Exam Head Exam: ATRAUMATIC, NORMOCEPHALIC - Eye Exam Eye Exam: Normal appearance Pupil Exam: NORMAL ACCOMODATION - ENT Exam ENT Exam: Mucous Membranes Moist - Extremities Exam Additional comments: RLE focused vascular: dp/pt 2/4, CFt <3 secs x 5, TG warm to warm WNL, No edema or erythema noted compared to the contralateral ankle derm: no IDM, no open lesions, varicosities noted on the dorsum of the foot and ankle, edema and erythema noted on the dorsal mid right foot. ortho: minimal pain with ROM of the ankle, minimal pain with palpation of the ankle joint, pain on palpation to the right tarsometatarsal joint neuro: protective sensation intact via ipswich 4/4 - Neurological Exam Neurological Exam: Alert, Awake, Oriented x3 - Psychiatric Exam Psychiatric exam: Normal Affect Assessment and Plan - Assessment and Plan (Free Text) Assessment: 67M with right foot/ankle pain. Plan: Patient seen and evaluated with Dr. Ybarra Afebrile, WBC trending down from 20.2 (03/31) to 12 today X-rays reviewed; no signs of osseous erosions, no acute deformity Continue IV antibiotics No signs of active clinical infection of the right ankle MRI of the right foot and ankle ordered Uric acid ordered. Reluctant to aspirate joint as WBC gone down with IV abx, consider aspiration if WBC does not continue to trend downward Podiatry will continue to monitor the patient
--- NOTE | 2018-04-03 16:17 | CP.PCM.PN ---
Subjective - Date & Time of Evaluation Date of Evaluation: 04/03/18 Time of Evaluation: 09:15 - Subjective Subjective: Comfortable, no fevers, still with pain in the right foot. Objective - Vital Signs/Intake and Output Vital Signs (last 24 hours): Temp Pulse Resp BP Pulse Ox 98.1 F 101 H 20 143/96 H 96 04/03/18 14:00 04/03/18 14:00 04/03/18 14:00 04/03/18 14:00 04/03/18 14:00 - Medications Medications: Current Medications Acetaminophen (Tylenol 325mg Tab) 650 mg PO Q4H PRN PRN Reason: Pain, Mild (1-3) Atorvastatin Calcium (Lipitor) 10 mg PO HS [facility] Last Admin: 04/02/18 21:33 Dose: 10 mg Vancomycin HCl 1.5 gm/ Sodium (Chloride) 500 mls @ 167 mls/hr IVPB Q12H [facility]; Protocol Stop: 04/07/18 12:31 Last Admin: 04/03/18 10:18 Dose: 167 mls/hr Piperacillin Sod/Tazobactam Sod (Zosyn 3.375 In Ns 100ml) 100 mls @ 25 mls/hr IVPB 0000,0800,1600 [facility]; Protocol Last Admin: 04/03/18 08:27 Dose: 25 mls/hr Levalbuterol HCl (Xopenex) 0.63 mg IH [id number] PRN PRN Reason: Shortness of Breath Last Admin: 04/02/18 15:39 Dose: 0.63 mg Metoprolol Tartrate (Lopressor) 50 mg PO BID [facility] Last Admin: 04/03/18 10:06 Dose: 50 mg Paroxetine HCl (Paxil) 10 mg PO DAILY [facility] Last Admin: 04/03/18 10:06 Dose: 10 mg Rivaroxaban (Xarelto) 20 mg PO DAILY [facility]; Protocol Last Admin: 04/03/18 10:06 Dose: 20 mg Tramadol HCl (Ultram) 50 mg PO Q6 PRN PRN Reason: Pain, moderate (4-7) Verapamil HCl (Calan Sr Tab) 240 mg PO DAILY [facility] Last Admin: 04/03/18 10:07 Dose: 240 mg - Labs Labs: 04/03/18 11:00 04/03/18 11:00 - Constitutional Appears: Chronically Ill - Head Exam Head Exam: NORMAL INSPECTION - Neck Exam Neck Exam: absent: Meningismus - Respiratory Exam Respiratory Exam: Decreased Breath Sounds - Cardiovascular Exam Cardiovascular Exam: +S1, +S2 - GI/Abdominal Exam GI & Abdominal Exam: Soft. absent: Tenderness - Extremities Exam Additional comments: right foot with some erythema, no discharge, some tenderness on the dorsum of foot Assessment and Plan - Assessment and Plan (Free Text) Plan: Assessment Sepsis from right foot cellulitis R/O osteomyelitis raynaud's phenomenon rheumatoid arthritis atrial fibrillation Plan continue Vancomycin and Zosyn day 4 and follow up MRI of the foot discussed with Podiatry will monitor clinically
--- NOTE | 2018-04-04 06:18 | CP.PCM.DIS ---
Provider - Provider Date of Admission: 03/31/18 07:46 Attending physician: Kali Tran MD Primary care physician: Dr. Mares Consults: 03/31/18 08:10 Consult [Physician Consult] Routine Comment: Consulting Provider: Riaz Elkins Consulting Physician: Riaz Elkins Reason for Consult: R ankle swelling r/o septic joint Consult [Physician Consult] Routine Comment: Consulting Provider: Nadeen Odonnell Consulting Physician: Nadeen Odonnell Reason for Consult: R ankle swelling 03/31/18 10:01 Consult [Physician Consult] Routine Comment: afib Consulting Provider: Marcos Zaragoza Consulting Physician: Marcos Zaragoza Reason for Consult: afib 03/31/18 14:04 Social Work Referral Routine Comment: arthritis Physician Instructions: Reason For Exam: eval 03/31/18 15:02 Inpatient [facility]UST[facility] RO[facility] ATTENDANT Core Measures Referral Routine Comment: arthritis Physician Instructions: Reason For Exam: eval Transition In Care/Readmission Reduction Routine Comment: arthritis Physician Instructions: Reason For Exam: eval Time Spent in preparation of Discharge (in minutes): 35 Hospital Course - Lab Results Lab Results: Micro Results 03/31/18 09:46 Blood Blood Culture - Preliminary NO GROWTH AFTER 3 DAYS 03/31/18 09:30 Blood Blood Culture - Preliminary NO GROWTH AFTER 3 DAYS 04/01/18 01:30 Urine Random Urine Culture - Final No Growth (<1,000 CFU/ML) Most Recent Lab Values WBC 11.0 10^3/uL (4.5-11.0) 04/03/18 11:00 RBC 4.75 10^6/uL (3.5-6.1) 04/03/18 11:00 Hgb 14.8 g/dL (14.0-18.0) 04/03/18 11:00 Hct 44.7 % (42.0-52.0) 04/03/18 11:00 MCV 94.1 fl (80.0-105.0) 04/03/18 11:00 MCH 31.2 pg (25.0-35.0) 04/03/18 11:00 MCHC 33.1 g/dl (31.0-37.0) 04/03/18 11:00 RDW 13.4 % (11.5-14.5) 04/03/18 11:00 Plt Count 244 10^3/uL (120.0-450.0) 04/03/18 11:00 MPV 10.3 fl (7.0-11.0) 04/03/18 11:00 Gran % 75.8 % (50.0-68.0) H 04/03/18 11:00 Lymph % (Auto) 13.0 % (22.0-35.0) L 04/03/18 11:00 [place] % (Auto) 8.7 % (1.0-6.0) H 04/03/18 11:00 Eos % (Auto) 2.0 % (1.5-5.0) 04/03/18 11:00 Baso % (Auto) 0.5 % (0.0-3.0) 04/03/18 11:00 Gran # 8.31 (1.4-6.5) H 04/03/18 11:00 Lymph # (Auto) 1.4 (1.2-3.4) 04/03/18 11:00 [place] # (Auto) 1.0 (0.1-0.6) H 04/03/18 11:00 Eos # (Auto) 0.2 (0.0-0.7) 04/03/18 11:00 Baso # (Auto) 0.05 K/mm3 (0.0-2.0) 04/03/18 11:00 Neutrophils % (Manual) 87 % (50.0-70.0) H 03/31/18 06:05 Band Neutrophils % 5 % (0-2) H 03/31/18 06:05 Lymphocytes % (Manual) 3 % (22.0-35.0) L 03/31/18 06:05 Monocytes % (Manual) 5 % (1.0-6.0) 03/31/18 06:05 Platelet Evaluation Normal (NORMAL) 03/31/18 06:05 Sodium 139 mmol/L (132-148) 04/03/18 11:00 Potassium 4.6 mmol/L (3.6-5.0) 04/03/18 11:00 Chloride 102 mmol/L (98-107) 04/03/18 11:00 Carbon Dioxide 28 mmol/L (21-33) 04/03/18 11:00 Anion Gap 13 (10-20) 04/03/18 11:00 BUN 19 mg/dL (7-21) 04/03/18 11:00 Creatinine 1.2 mg/dl (0.8-1.5) 04/03/18 11:00 Est GFR ( Amer) > 60 04/03/18 11:00 Est GFR (Non-Af Amer) > 60 04/03/18 11:00 Random Glucose 104 mg/dL (70-110) 04/03/18 11:00 Uric Acid 5.2 mg/dL (3.5-8.5) 03/31/18 06:05 Calcium 9.6 mg/dL (8.4-10.5) 04/03/18 11:00 Total Bilirubin 1.0 mg/dL (0.2-1.3) 04/03/18 11:00 AST 40 U/L (17-59) 04/03/18 11:00 ALT 37 U/L (7-56) 04/03/18 11:00 Alkaline Phosphatase 101 U/L (38-126) 04/03/18 11:00 Total Protein 8.0 g/dL (5.8-8.3) 04/03/18 11:00 Albumin 4.0 g/dL (3.0-4.8) 04/03/18 11:00 Globulin 4.1 gm/dL 04/03/18 11:00 Albumin/Globulin Ratio 1.0 (1.1-1.8) L 04/03/18 11:00 Vancomycin Trough 20.9 ug/mL (5.0-10.0) H* 04/02/18 21:12 - Hospital Course Hospital Course: Upon Admission 67yo male PMHx rheumatoid arthritis with raynaud's phenomenon, off methotrexate, Afib on xarelto presented with pain in his right ankle with associated difficulty ambulating. Patient denied any known trauma. He did admit to exposure to feral cats. He denied other complaints of fever, chills, abd/back pain, nausea, vomiting, bowel/bladder complaints. Hospital Course Patient was admitted to med/surg with concern of a sepsis secondary to R foot abscess with overlying cellulitis. Podiatry and ID were consulted. Patient had cultures drawn and was started on IV Vanc and Zosyn. Right Ankle x-ray had no acute findings. RLE CT showed evidence of cellulitis without osteomyelitis and posttraumatic/degenerative changes. It was deemed no need to tap joint at this time due to minimal swelling. MRI foot and ankle showed no evidence of osteomyelitis. Throughout hospital course patient's pain and mobility improved markedly and he was afebrile with downtrending leukocytosis. Patient did not qualify for TCU and PT deemed patient was a candidate for home upon discharge. On day of discharge patient had clinically improved and was deemed medically optimized for discharge. Discharge Instructions "You are being discharged from [facility] Upon discharge please take the following medications as prescribed: -Augmentin 875-125mg 1 tab q12 for 7 days -Doxycycline 100mg 1 tab q12 for 7 days Please resume all other home medications. Please follow up with your PMD Dr. Mares on your scheduled appointment date. Please also follow up with a clay stain mixer upon discharge. If symptoms return or pain worsens please visit your nearest Emergency Room." Instructions discussed in detail with patient who voiced understanding and agreemet. Please note this is a discharge summary. For full hospital course please refer to EMR. Discharge Exam - Head Exam Head Exam: ATRAUMATIC, NORMAL INSPECTION, NORMOCEPHALIC - Eye Exam Eye Exam: EOMI, Normal appearance, PERRL. absent: Conjunctival injection, Scleral icterus - ENT Exam ENT Exam: Mucous Membranes Moist - Neck Exam Neck exam: Full Rom - Respiratory Exam Respiratory Exam: Clear to PA & Lateral, NORMAL BREATHING PATTERN. absent: Accessory Muscle Use, Rales, Rhonchi, Wheezes, Respiratory Distress - Cardiovascular Exam Cardiovascular Exam: Irregular Rhythm, +S1, +S2. absent: Bradycardia, Tachycardia - GI/Abdominal Exam GI & Abdominal Exam: Normal Bowel Sounds, Soft. absent: Firm, Tenderness - Extremities Exam Extremities exam: pedal pulses present Additional comments: R ankle and foot discloration noted ROM much improved with minimal pain on flexion, extension, and rotation minimal swelling - Neurological Exam Neurological exam: Alert, CN II-XII Intact, Oriented x3 - Psychiatric Exam Psychiatric exam: Normal Affect, Normal Mood - Skin Skin Exam: Dry, Intact, Normal Color, Warm Discharge Plan - Discharge Medications Prescriptions: Amoxicillin/Clavulanate [Augmentin 875 MG-125 MG] 1 tab PO Q12 7 Days #14 tab Atorvastatin [Lipitor] 10 mg PO DAILY #14 tab Doxycycline Monohydrate 100 mg PO Q12 7 Days #14 capsule Metoprolol Tartrate [Lopressor] 50 mg PO BID #28 tab Rivaroxaban [Xarelto] 20 mg PO DAILY #14 tab Verapamil [Calan SR Tab] 240 mg PO DAILY #14 tab - Follow Up Plan Condition: STABLE Disposition: HOME/ ROUTINE Instructions: Rheumatoid Arthritis, Flu Vaccine Additional Instructions: You are being discharged from [facility] Upon discharge please take the following medications as prescribed: -Augmentin 875-125mg 1 tab q12 for 7 days -Doxycycline 100mg 1 tab q12 for 7 days Please resume all other home medications. Please follow up with your PMD Dr. Mares on your scheduled appointment date. Please also follow up with a clay stain mixer upon discharge. If symptoms return or pain worsens please visit your nearest Emergency Room. Referrals: Ashok Mares MD [Staff Provider] -
[2018-04-04 07:06] LABS: BASO # 0.04 K/mm3 (0.0-2.0); BASO % 0.5 % (0.0-3.0); EOS # 0.3 (0.0-0.7); EOS % 3.9 % (1.5-5.0); GRAN # 5.76 (1.4-6.5); GRAN % 71.9 % (50.0-68.0); HEMOGLOBIN 13.6 g/dL (14.0-18.0); LYMPH # 1.1 (1.2-3.4); LYMPH % 13.8 % (22.0-35.0); MEAN CELL VOLUME 92.6 fl (80.0-105.0); MEAN CORPUSCULAR HEMOGLOBIN 30.7 pg (25.0-35.0); MEAN CORPUSCULAR HGB CONC 33.2 g/dl (31.0-37.0); MEAN PLATELET VOLUME 10.5 fl (7.0-11.0); MONO # 0.8 (0.1-0.6); MONO % 9.9 % (1.0-6.0); RBC 4.43 10^6/uL (3.5-6.1); RED CELL DISTRIBUTION WIDTH 13.3 % (11.5-14.5)
[2018-04-04 07:42] LABS: ALB/GLOB RATIO 0.9 (1.1-1.8); ALBUMIN 3.3 g/dL (3.0-4.8); ALT/SGPT 47 U/L (7-56); AST/SGOT 35 U/L (17-59); BLOOD UREA NITROGEN 15 mg/dL (7-21); GFR NON-AFRICAN AMERICAN > 60; URIC ACID 4.2 mg/dL (3.5-8.5)
[2018-04-04 09:08] VITALS: RESP 20
[2018-04-04] MEDS: Vancomycin 1.5 GM in Sodium Chloride 0.9% 500 ML IVPB SCH (09:49)
[2018-04-04] MEDS: Verapamil 240 mg ER Tab PO SCH (09:58)
--- NOTE | 2018-04-04 14:29 | MRI ---
Date of service: 04/03/2018 PROCEDURE: MRI of the right ankle without contrast HISTORY: possible septic jonit COMPARISON: CT scan 04/02/2018 TECHNIQUE: MRI of the right ankle was performed in multiple planes using multiple pulse sequences. FINDINGS: There is no marrow edema to suggest osteomyelitis. There is a small joint effusion in the ankle joint and in the posterior subtalar joint. The presence of a septic joint cannot be determined without aspiration. There is subcutaneous edema consistent with cellulitis. IMPRESSION: No evidence of osteomyelitis.
--- NOTE | 2018-04-04 14:34 | MRI ---
Date of service: 04/03/2018 PROCEDURE: MRI of the right foot without contrast HISTORY: possible septic joint COMPARISON: MRI of the ankle same day TECHNIQUE: MRI of the right foot was performed in multiple planes using multiple pulse sequences. FINDINGS: There is a large amount of subcutaneous edema over the dorsum of the foot consistent with cellulitis or passive edema. There is no edema seen within the metatarsals to suggest osteomyelitis. IMPRESSION: No evidence of osteomyelitis.
[2018-04-04 14:48] VITALS: BP 131/93; PULSE 91; TEMP 98.9; O2SAT 97
--- NOTE | 2018-04-04 16:33 | CP.PCM.PN ---
Subjective - Date & Time of Evaluation Date of Evaluation: 04/04/18 Time of Evaluation: 09:20 - Subjective Subjective: Still with right foot pain but a little better, no fevers, not in distress. Objective - Vital Signs/Intake and Output Vital Signs (last 24 hours): Temp Pulse Resp BP Pulse Ox 98.9 F 91 H 20 131/93 H 97 04/04/18 14:00 04/04/18 14:00 04/04/18 14:00 04/04/18 14:00 04/04/18 14:00 Intake and Output: 04/04/18 04/04/18 06:59 18:59 Intake Total 1780 Output Total 800 Balance 980 - Medications Medications: Current Medications Acetaminophen (Tylenol 325mg Tab) 650 mg PO Q4H PRN PRN Reason: Pain, Mild (1-3) Atorvastatin Calcium (Lipitor) 10 mg PO HS [facility] Last Admin: 04/03/18 21:38 Dose: 10 mg Vancomycin HCl 1.5 gm/ Sodium (Chloride) 500 mls @ 167 mls/hr IVPB Q12H [facility]; Protocol Stop: 04/07/18 12:31 Last Admin: 04/04/18 09:49 Dose: 167 mls/hr Levalbuterol HCl (Xopenex) 0.63 mg IH [id number] PRN PRN Reason: Shortness of Breath Last Admin: 04/02/18 15:39 Dose: 0.63 mg Metoprolol Tartrate (Lopressor) 50 mg PO BID [facility] Last Admin: 04/04/18 09:59 Dose: 50 mg Paroxetine HCl (Paxil) 10 mg PO DAILY [facility] Last Admin: 04/04/18 10:04 Dose: 10 mg Rivaroxaban (Xarelto) 20 mg PO DAILY [facility]; Protocol Last Admin: 04/04/18 10:04 Dose: 20 mg Tramadol HCl (Ultram) 50 mg PO Q6 PRN PRN Reason: Pain, moderate (4-7) Verapamil HCl (Calan Sr Tab) 240 mg PO DAILY [facility] Last Admin: 04/04/18 09:58 Dose: 240 mg - Labs Labs: 04/04/18 06:30 04/04/18 06:30 - Constitutional Appears: Chronically Ill - Head Exam Head Exam: NORMAL INSPECTION - ENT Exam ENT Exam: Mucous Membranes Moist - Neck Exam Neck Exam: absent: Lymphadenopathy, Meningismus - Respiratory Exam Respiratory Exam: Decreased Breath Sounds - Cardiovascular Exam Cardiovascular Exam: +S1, +S2 - GI/Abdominal Exam GI & Abdominal Exam: Soft. absent: Tenderness Assessment and Plan - Assessment and Plan (Free Text) Plan: Assessment Sepsis from right foot cellulitis with no evidence of osteomyelitis on MRI of the foot and ankle raynaud's phenomenon rheumatoid arthritis atrial fibrillation Plan on Vancomycin and Zosyn day 5 and can switch to PO Augmentin and Doxycycline for another 5 days with outpatient follow up with PMD and Podiatry reivewed MRI of the foot and ankle
== END 2018-04-04 17:16 | disposition home or self-care (01) | DRG 872 ==
LOC: ED 03:44 → ERH 07:46 → UNDOADMIN 07:46 → ERH 08:11 → 2RNO 13:35 → ERH 13:35 → 2RNO 04-01 09:59 → 5RNO 04-01 09:59 → UNDODISIN 04-04 17:16
PROVIDERS: ADMIT Internal Medicine Nephrology; ATTEND Internal Medicine Nephrology
DX: A41.9 Sepsis, unspecified organism (principal); L03.115 Cellulitis of right lower limb; M06.9 Rheumatoid arthritis, unspecified; I48.91 Unspecified atrial fibrillation; I10 Essential (primary) hypertension; E78.5 Hyperlipidemia, unspecified; I73.00 Raynaud's syndrome without gangrene; F32.9 Major depressive disorder, single episode, unspecified; F41.9 Anxiety disorder, unspecified; Z79.01 Long term (current) use of anticoagulants

== ENCOUNTER 2018-04-24 09:35 | Observation (INO) | payer MEDICARE ==
[2018-04-24 09:35] VITALS: PULSE 67
--- NOTE | 2018-04-24 11:36 | ED PDOC ---
Arrival/HPI - General Chief Complaint: Lower Extremity Problem/Injury Time Seen by Provider: 04/24/18 10:22 Historian: Patient - History of Present Illness Narrative History of Present Illness (Text): 04/24/18 10:22 Michele Myles is a 67 year old male who presents to the emergency department with complaints of right knee swelling since last week. Patient states swelling worsened last night and is unable to ambulate. Patient informs history of rheumatoid arthritis and current symptoms are consistent with previous flare ups. Patient has discontinued Methotrexate due to resolution of symptoms and is currently taking Xarelto. Patient denies falling, thigh swelling, fevers, chills, headache, dizziness, chest pain, shortness of breath, dyspnea on exertion, cough, abdominal pain, nausea, vomiting, diarrhea, back pain, neck pain, hip pain, or any other complaint. Past medical history: Rheumatoid arthritis, COPD, hypertension, and A-fib Past surgical history: lower back surgery PMD: Dr. Mares [employer] Referee: Dr. Sierra Time/Duration: < week Symptom Course: Worsening Activities at Onset: Light Context: Home Past Medical History - Provider Review Nursing Documentation Reviewed: Yes - Infectious Disease Hx of Infectious Diseases: None - Cardiac Hx Cardiac Disorders: Yes - Pulmonary Hx Chronic Obstructive Pulmonary Disease (COPD): Yes (sees dr telles) - Neurological Hx Paralysis: No - HEENT Hx HEENT Disorder: Yes (eyeglasses) - Hematological/Oncological Hx Blood Transfusions: No Hx Blood Transfusion Reaction: No - Integumentary Hx Dermatological Disorder: Yes Other/Comment: multiple tatoos, slight redness both feet, +1 edema right foot, blue dye to both feet and knuckles from pt's blanket ,redness to 4th knuckle right hand, edema to both hands, scar right anabaptist from benign skin lesion removal - Musculoskeletal/Rheumatological Hx Arthritis: Yes Hx Rheumatoid Arthritis: Yes - Gastrointestinal Other/Comment: colonoscopy with 2 polyps removed - Psychiatric Hx Anxiety: Yes Hx Depression: Yes Hx Substance Use: No - Surgical History Other/Comment: small mass removed from back - Anesthesia Hx Anesthesia: Yes Hx Anesthesia Reactions: No Hx Malignant Hyperthermia: No - Suicidal Assessment Feels Threatened In Home Enviroment: No Family/Social History - Physician Review Nursing Documentation Reviewed: Yes Family/Social History: Neoplasm/Cancer (Mother; uterine. Father; skin. Sister; bladder and throat ) Smoking Status: Unknown If Ever Smoked Hx Alcohol Use: No Hx Substance Use: No Allergies/Home Meds Allergies/Adverse Reactions: Allergies No Known Allergies Allergy (Verified 01/05/13 11:27) Home Medications: Home Meds Medication Instructions Recorded Confirmed Annuity 1 puff INH DAILY 03/31/18 03/31/18 Levalbuterol Tartrate [Xopenex Hfa] 0.63 puff INH BID 03/31/18 03/31/18 Paroxetine HCl [Paxil] 10 mg PO DAILY 03/31/18 03/31/18 Review of Systems - Physician Review All systems were reviewed & negative as marked: Yes - Review of Systems Constitutional: Fatigue (stated "no energy" ). absent: Fevers, Night Sweats Respiratory: absent: SOB, Cough Cardiovascular: absent: Chest Pain Gastrointestinal: absent: Abdominal Pain, Diarrhea, Nausea, Vomiting Musculoskeletal: Arthralgias (right knee pain), Joint Swelling (right knee, no thigh swelling). absent: Back Pain, Neck Pain Skin: absent: Rash Neurological: absent: Headache, Dizziness Physical Exam Vital Signs Reviewed: Yes Vital Signs Temp Pulse Resp BP Pulse Ox 04/24/18 10:25 98.2 F 90 17 100/64 98 Temperature: Afebrile Blood Pressure: Normal Pulse: Regular Respiratory Rate: Normal Appearance: Positive for: Well-Appearing, Non-Toxic, Comfortable Pain Distress: None Mental Status: Positive for: Alert and Oriented X 3 - Systems Exam Head: Present: Atraumatic, Normocephalic Pupils: Present: PERRL Extroacular Muscles: Present: EOMI Conjunctiva: Present: Normal Mouth: Present: Moist Mucous Membranes Neck: Present: Normal Range of Motion Respiratory/Chest: Present: Clear to Auscultation, Good Air Exchange. No: Respiratory Distress, Accessory Muscle Use Cardiovascular: Present: Regular Rate and Rhythm, Normal S1, S2. No: Murmurs Abdomen: No: Tenderness, Distention, Peritoneal Signs Back: Present: Normal Inspection Upper Extremity: Present: Normal Inspection. No: Cyanosis, Edema Lower Extremity: Present: Tenderness (right knee), Swelling (right knee), Neurovascularly Intact, Other (negative thompsons test). No: Edema, CALF TENDERNESS, Erythema Neurological: Present: GCS=15, CN II-XII Intact, Speech Normal, Motor Func Grossly Intact Skin: Present: Warm, Dry, Normal Color. No: Rashes Psychiatric: Present: Alert, Oriented x 3, Normal Insight, Normal Concentration Medical Decision Making ED Course and Treatment: 04/24/18 10:22 Impression: Patient is a 67 year old male who presents to the emergency department with complaints of right knee swelling since last week. Pt notes being unable to walk today due to the pain. No fall or trauma. N/v Intact distally. Pt notes bluish discoloration was seen previously be previous physician and is his comforter. No cyanosis noted on exam, good cap refill on exam. Plan: -- Labs -- X-Ray Right Knee -- Ultram -- Reassess and disposition Prior Visits: Notes and results from previous visits were reviewed. Progress Notes: 04/24/18 12:[address] Luna, who is aware and agrees with emergency department plan, states following up with patient. No other medical intervention needed at this time, other than ESR and CRP. 04/24/18 13:[address] Hernandez, who recommends Dr. Farmer. Dr. Luna is agreeable. Spoke to Dr. Farmer, who will tap the knee. No further intervention / antibiotics at this time. pt in NAD, admitted. - RAD Interpretation Radiology Orders: 04/24/18 10:48 KNEE RIGHT 2 VIEWS (AP & LAT) [RAD] Stat - Medication Orders Current Medication Orders: Discontinued Medications Tramadol HCl (Ultram) 50 mg PO STAT STA Stop: 04/24/18 11:01 Last Admin: 04/24/18 11:15 Dose: 50 mg RICH Pain Assessment Document 04/24/18 11:15 DANUTA (Rec: 04/24/18 11:15 [place] [facility] [id number] Pain Reassessment Is this a pain reassessment? Yes Presence of Pain Presence of Pain Yes Pain Scale Used Protocol: PSCALES Pain Scale Used Numeric Location Left, Right or Bilateral Right Pain Location Body Site Knee Description Intensity of Pain at present 8 - Scribe Statement The provider has reviewed the documentation as recorded by the Miguel saucedo with Juan J All medical record entries made by the Ariasibjohnna were at my direction and personally dictated by me. I have reviewed the chart and agree that the record accurately reflects my personal performance of the history, physical exam, medical decision making, and the department course for this patient. I have also personally directed, reviewed, and agree with the discharge instructions and disposition. Disposition/Present on Arrival - Present on Arrival Any Indicators Present on Arrival: No History of DVT/PE: No History of Uncontrolled Diabetes: No Urinary Catheter: No History of Decub. Ulcer: No History Surgical Site Infection Following: None - Disposition Have Diagnosis and Disposition been Completed?: Yes Diagnosis: Right knee pain Disposition Time: 12:45 Patient Problems: Current Active Problems Problem Status Onset Right knee pain Acute Condition: GOOD
[2018-04-24 11:45] LABS: ALBUMIN 3.7 g/dL (3.0-4.8); ALT/SGPT 13 U/L (7-56); AST/SGOT 23 U/L (17-59); BLOOD UREA NITROGEN 25 mg/dL (7-21); CALCIUM 9.1 mg/dL (8.4-10.5); GFR NON-AFRICAN AMERICAN > 60
[2018-04-24 11:53] LABS: BASO # 0.04 K/mm3 (0.0-2.0); BASO % 0.2 % (0.0-3.0); EOS % 0.1 % (1.5-5.0); HEMOGLOBIN 14.2 g/dL (14.0-18.0); LYMPH # 1.4 (1.2-3.4); LYMPH % 8.3 % (22.0-35.0); MEAN CELL VOLUME 93.3 fl (80.0-105.0); MEAN CORPUSCULAR HEMOGLOBIN 30.6 pg (25.0-35.0); MEAN CORPUSCULAR HGB CONC 32.8 g/dl (31.0-37.0); MEAN PLATELET VOLUME 11.3 fl (7.0-11.0); MONO # 0.6 (0.1-0.6); MONO % 3.5 % (1.0-6.0); RBC 4.64 10^6/uL (3.5-6.1); RED CELL DISTRIBUTION WIDTH 13.4 % (11.5-14.5); WHITE BLOOD COUNT 16.8 10^3/uL (4.5-11.0)
--- NOTE | 2018-04-24 13:06 | RAD ---
Date of service: 04/24/2018 PROCEDURE: Right Knee Radiographs. HISTORY: r knee pain COMPARISON: None. FINDINGS: BONES: There is a bipartite patella. JOINTS: There is joint space narrowing in all 3 compartments. JOINT EFFUSION: Moderate joint effusion OTHER FINDINGS: None. IMPRESSION: Osteoarthritis
[2018-04-24 16:05] LABS: BODY FLUID TYPE PERITONEAL
[2018-04-24 16:37] LABS: BF GROSS APPEARANCE TURBID (CLEAR); BODY FLUID TOTAL COUNT 100 (0-0)
[2018-04-24] MEDS ORDERED: MethylPREDNISolone Depo 40 mg/ml Inj IM ONE (16:46)
[2018-04-24] MEDS ORDERED: Bupivacaine 0.5% Inj(30mL) IJ ONE (16:46)
--- NOTE | 2018-04-25 06:13 | CP.PCM.HP ---
<Orin Rodriguez - Last Filed: 04/25/18 19:38> History of Present Illness - History of Present Illness History of Present Illness: 67yo male PMHx A-fib s/p cardioversion, Rheumatoid arthritis with raynaud's phenomenon, off methotrexate since Summer 2017, Anxiety/Depression, COPD recently hospitalized for sepsis secondary to R foot abscess with overlying cellulitis presents with R knee pain and swelling. Patient reports he noted that his right knee was becoming more swollen over the past week with worsening pain 10/10 which was making it difficult to ambulate. Patient was using tylenol to no avail. He reported the pain was located at both sides of his right knee and did not radiate down his leg. He admitted to a fever of 100F and denied any chills. He admitted to decreased ROM of his RLE. On other ROS patient denied chills, headache, dizziness, chest pain, palpitations, SOB, cough, abd pain, nausea, vomiting, bowel/bladder complaints, numbness/tingling in b/l LE. PMHx: A-fib s/p cardioversion, Rheumatoid arthritis with raynaud's phenomenon, off methotrexate since Summer 2017, Anxiety/Depression, R ankle cellulitis, COPD PSurgHx: Cystoscopy (spring 2017) to monitor kidney lesion, unchanged, Small mass removed from back, Colonoscopy with 2 polys removed FamHx: Mom-uterine ca, dad-skin ca, sister-bladder and throat ca SocHx: Never smoke. No drug. Last drink in 1988. He used to consume beer heavily All: NKDA Med: pls see chart PMD: Dr. Mares Machine Turner: Dr. Sierra Present on Admission - Present on Admission Any Indicators Present on Admission: No Review of Systems - Review of Systems All systems: reviewed and no additional remarkable complaints except Review of Systems: as per HPI Past Patient History - Infectious Disease Hx of Infectious Diseases: None - Past Social History Smoking Status: Former Smoker - CARDIAC Hx Cardiac Disorders: Yes - PULMONARY Hx Chronic Obstructive Pulmonary Disease (COPD): Yes (sees dr telles) - NEUROLOGICAL Hx Paralysis: No - HEENT Hx HEENT Problems: Yes (eyeglasses) - HEMATOLOGICAL/ONCOLOGICAL Hx Blood Transfusions: No Hx Blood Transfusion Reaction: No - INTEGUMENTARY Hx Dermatological Problems: Yes Other/Comment: multiple tatoos, slight redness both feet, +1 edema right foot, blue dye to both feet and knuckles from pt's blanket ,redness to 4th knuckle right hand, edema to both hands, scar right oriental orthodox from benign skin lesion removal - MUSCULOSKELETAL/RHEUMATOLOGICAL Hx Falls: No - GASTROINTESTINAL Other/Comment: colonoscopy with 2 polyps removed - PSYCHIATRIC Hx Anxiety: Yes Hx Depression: Yes Hx Substance Use: No - SURGICAL HISTORY Other/Comment: small mass removed from back - ANESTHESIA Hx Anesthesia: Yes Hx Anesthesia Reactions: No Hx Malignant Hyperthermia: No Meds Allergies/Adverse Reactions: Allergies Allergy/AdvReac Type Severity Reaction Status Date / Time No Known Allergies Allergy Verified 01/05/13 11:27 Physical Exam - Constitutional Appears: Non-toxic, No Acute Distress - Head Exam Head Exam: ATRAUMATIC, NORMAL INSPECTION, NORMOCEPHALIC - Eye Exam Eye Exam: EOMI, Normal appearance, PERRL. absent: Conjunctival injection, Scleral icterus Pupil Exam: PERRL - ENT Exam ENT Exam: Mucous Membranes Moist - Neck Exam Neck exam: Positive for: Normal Inspection. Negative for: Lymphadenopathy - Respiratory Exam Respiratory Exam: NORMAL BREATHING PATTERN. absent: Accessory Muscle Use, Rales, Rhonchi, Wheezes, Respiratory Distress - Cardiovascular Exam Cardiovascular Exam: Irregular Rhythm, +S1, +S2 - GI/Abdominal Exam GI & Abdominal Exam: Normal Bowel Sounds, Soft. absent: Firm, Guarding, Rigid, Tenderness - Extremities Exam Extremities exam: Positive for: pedal pulses present. Negative for: pedal edema, tenderness Additional comments: R knee mildly tender to palpation and ROM intact - Back Exam Back exam: NORMAL INSPECTION. absent: rash noted, tenderness - Neurological Exam Neurological exam: Alert, CN II-XII Intact, Oriented x3 - Psychiatric Exam Psychiatric exam: Normal Affect, Normal Mood - Skin Skin Exam: Dry, Intact, Normal Color, Warm Results - Vital Signs Recent Vital Signs: Last Vital Signs Temp 98.0 F 04/25/18 00:50 Pulse 88 04/25/18 05:13 Resp 20 04/25/18 05:13 BP 133/75 04/25/18 00:50 Pulse Ox 97 04/25/18 00:50 - Labs Result Diagrams: 04/25/18 07:00 04/25/18 07:00 Labs: Laboratory Results - last 24 hr 04/24/18 04/24/18 04/24/18 10:51 10:51 10:51 WBC 16.8 H D RBC 4.64 Hgb 14.2 Hct 43.3 MCV 93.3 MCH 30.6 MCHC 32.8 RDW 13.4 Plt Count 224 MPV 11.3 H Neut % (Auto) 87.9 H Lymph % (Auto) 8.3 L Evangeline % (Auto) 3.5 Eos % (Auto) 0.1 L Baso % (Auto) 0.2 Lymph # (Auto) 1.4 Evangeline # (Auto) 0.6 Eos # (Auto) 0.0 Baso # (Auto) 0.04 Absolute Neuts (auto) 14.74 H ESR 53 H Sodium 136 Potassium 4.3 Chloride 105 Carbon Dioxide 25 Anion Gap 11 BUN 25 H Creatinine 1.1 Est GFR ( Amer) > 60 Est GFR (Non-Af Amer) > 60 Random Glucose 135 H Calcium 9.1 Total Bilirubin 0.7 AST 23 ALT 13 Alkaline Phosphatase 109 C-React Prot High Sens Total Protein 7.2 Albumin 3.7 Globulin 3.5 Albumin/Globulin Ratio 1.0 L Fluid Source Fluid Appearance Fluid WBC Fluid RBC Fluid Tot Cell Count Fluid Mononuclear Cell Fl Polymorphonucl Cell Fluid Comment 04/24/18 04/24/18 10:51 16:00 WBC RBC Hgb Hct MCV MCH MCHC RDW Plt Count MPV Neut % (Auto) Lymph % (Auto) Evangeline % (Auto) Eos % (Auto) Baso % (Auto) Lymph # (Auto) Evangeline # (Auto) Eos # (Auto) Baso # (Auto) Absolute Neuts (auto) ESR Sodium Potassium Chloride Carbon Dioxide Anion Gap BUN Creatinine Est GFR ( Amer) Est GFR (Non-Af Amer) Random Glucose Calcium Total Bilirubin AST ALT Alkaline Phosphatase C-React Prot High Sens > 15.00 H Total Protein Albumin Globulin Albumin/Globulin Ratio Fluid Source Peritoneal Fluid Appearance Turbid Fluid WBC 14452.0 H Fluid RBC 34519.0 H Fluid Tot Cell Count 100 H Fluid Mononuclear Cell 8.6 H Fl Polymorphonucl Cell 91.4 H Fluid Comment TEST NOT PERFORMED Assessment & Plan - Assessment and Plan (Free Text) Assessment: -Right knee pain and swelling- r/o septic joint vs crystal-induced arthritis -A-fib s/p cardioversion -COPD -Rheumatoid arthritis with raynaud's phenomenon -Anxiety -Depression -Gait dysfunction Plan: Patient's vitals, blood work, and imaging noted. Ortho was consulted overnight who aspirated Right knee of 100cc turbid fluid with no purulence- fluid was sent for further studies. Patient also received a Depo-Medrol injection. Patient's knee x-ray on admission showed evidence of OA. MRI was ordered which showed no evidence of osteo. Patient was started on Vanc and Zosyn and ID was on board who agreed with management. Patient's Afib is rate controlled and he is on xarelto. Continue maintaining normotension with home med Verapamil. Patient's pain well controlled on Ultram and Tylenol. Patient continued on home colchicine. Xopenex prn on board for SOB in light of patient's history of COPD. Will continue home mood stabilizers. Continue lipitor at this time for HLD. Patient has a f/u appointment with his outpatient vascular tech. PT consulted for R knee arthritis. HHD ordered. Will continue to monitor patient closely. Discussed with Dr. Marc Rodriguez PGY3 <Kali Tran S - Last Filed: 04/26/18 19:05> Results - Vital Signs Recent Vital Signs: Last Vital Signs Temp 98.8 F 04/26/18 14:00 Pulse 81 04/26/18 18:07 Resp 20 04/26/18 14:00 BP 125/82 04/26/18 18:07 Pulse Ox 98 04/26/18 14:00 - Labs Result Diagrams: 04/26/18 07:00 04/26/18 07:00 Labs: Laboratory Results - last 24 hr 04/26/18 04/26/18 07:00 07:00 WBC 15.5 H RBC 4.18 Hgb 12.6 L Hct 39.0 L MCV 93.3 MCH 30.1 MCHC 32.3 RDW 13.6 Plt Count 209 MPV 11.0 Neut % (Auto) 81.4 H Lymph % (Auto) 9.3 L Evangeline % (Auto) 8.6 H Eos % (Auto) 0.3 L Baso % (Auto) 0.4 Lymph # (Auto) 1.4 Evangeline # (Auto) 1.3 H Eos # (Auto) 0.0 Baso # (Auto) 0.06 Absolute Neuts (auto) 12.62 H Sodium 138 Potassium 4.7 Chloride 107 Carbon Dioxide 29 Anion Gap 7 L BUN 23 H Creatinine 1.0 Est GFR ( Amer) > 60 Est GFR (Non-Af Amer) > 60 Random Glucose 106 Calcium 8.6 Phosphorus 3.6 Magnesium 1.9 Total Bilirubin 0.5 AST 21 ALT 24 Alkaline Phosphatase 76 Total Protein 6.2 Albumin 3.0 Globulin 3.3 Albumin/Globulin Ratio 0.9 L Assessment & Plan - Assessment and Plan (Free Text) Plan: Pt seen and examined by me. this is a late entry. I have reviewed the note of the senior medical director and I agree with it. I have discussed the assessment and plan with the resident. I have reviewed the medications and the last labs. Pt with R knee effusion s/p tap. He was given Depo shot my Ortho. MRI will be done to r/o osteo. Will get ID evaluation. He most likely has effusion due to his RA but will need to r/o septic joint. Pt is on Vanco and Zosyn. Pt is on Xarelto for A fib. On lipitor for dyslipidemia.
[2018-04-25] MEDS ORDERED: Levalbuterol 0.63 MG/3 ML Inhal Soln UD IH PRN (06:30)
[2018-04-25] MEDS ORDERED: Sodium Chloride 0.9% 1,000 ML IV SCH (06:45)
[2018-04-25 07:30] LABS: MEAN CELL VOLUME 92.6 fl (80.0-105.0); MEAN CORPUSCULAR HEMOGLOBIN 30.3 pg (25.0-35.0); MEAN CORPUSCULAR HGB CONC 32.7 g/dl (31.0-37.0); MEAN PLATELET VOLUME 10.8 fl (7.0-11.0); RBC 4.62 10^6/uL (3.5-6.1); RED CELL DISTRIBUTION WIDTH 13.4 % (11.5-14.5); WHITE BLOOD COUNT 14.8 10^3/uL (4.5-11.0)
--- NOTE | 2018-04-25 07:36 | CON ---
DATE: 04/24/2018 HISTORY OF PRESENT ILLNESS: The patient is a 67-year-old male with 2 week history of swelling of his right knee, past history of rheumatoid arthritis seen by drying rack changer and the pain is very tense, cause of pain and tenderness is caused by tense effusion of the right knee was stable. He does have past history of rheumatoid arthritis, so we took the opportunity while he is in the emergency room and going to be admitted under Dr. Tran to aspirate the right knee of 100 mL of turbid fluid, no purulence was sent to specimens for cultures. Cell count crystal, then I did an_ injecting with Depo-Medrol, Marcaine and we will wait for the specimens to be cultured and cell count analysis and crystal analysis. Does not look like infection, looks like inflammatory arthritis. We will look for that also. The patient should feel better with Depo-Medrol injection. FINAL DIAGNOSIS: Inflammatory arthritis of right knee with pain and we see how he does with Depo-Medrol injection, wait for the culture, cell count, crystal analysis. Kirk Farmer DO MTDNohemi
[2018-04-25] MEDS: Piperacillin/Tazobact 3.375 gm 100 ML IVPB SCH ×3 (08:25→23:47)
[2018-04-25 08:47] LABS: ALBUMIN 3.6 g/dL (3.0-4.8); ALT/SGPT 17 U/L (7-56); AST/SGOT 24 U/L (17-59); BLOOD UREA NITROGEN 28 mg/dL (7-21); CALCIUM 9.1 mg/dL (8.4-10.5); GFR NON-AFRICAN AMERICAN > 60
[2018-04-25] MEDS: Verapamil 240 mg ER Tab PO SCH (09:09)
[2018-04-25] MEDS ORDERED: Gadodiamide 287 MG/ML VIAL (20ML) IV ONE (11:10)
[2018-04-25] MEDS: Vancomycin 1.5 GM in Sodium Chloride 0.9% 500 ML IVPB SCH ×2 (11:46→22:29)
--- NOTE | 2018-04-25 12:44 | PN ---
DATE: 04/25/2018 LOCATION: 573, bed 1. SUBJECTIVE: The patient has much less pain in his right knee and he can move it about better. The white count of his fluid analysis was not purulent, but it did show on the white count, 64,000, white blood cells could just represent the extreme inflammatory arthritis that he has because he has been followed by a cover inspector for rheumatoid arthritis. He has characteristic features of his PIP joints of her both hands and has occasional swelling of the shoulders and wrists. Even though the knee feels better, he does have significant signs of inflammatory arthritis, but the cortisone must be helping his right knee. We will just have to wait for the culture and crystal analysis and if it is a re-accumulation of fluid, we could always re-asperate if needed. This could be just a manifestation of his rheumatoid arthritis. He has an appointment to see his rheumatoid doctor next month in [place]. Kirk Farmer DO SOSA
--- NOTE | 2018-04-25 15:00 | CP.PCM.CON ---
<Librado Mcgee - Last Filed: 04/25/18 14:56> History of Present Illness - History of Present Illness History of Present Illness: Infectious disease consult note: 67-year-old male with past medical history of rheumatoid arthritis, A. fib, anxiety depression, COPD, presents with right knee pain and swelling. Patient states that over the past week he has been feeling increasingly more pain in his right knee to the point that he was not able to stand on it. He has tried taking Tylenol however did not alleviate the pain. Of note patient was just recently hospitalized 1 month ago for sepsis secondary to right foot abscess with cellulitis. Patient denies any fevers however states that he had 100 F temperature. Of note patient has rheumatoid arthritis and was previously taking methotrexate however he has been following with a africana studies professor has been weaned off of it. Patient denies any other symptoms. Infectious disease consulted for possible septic joint. PMHx: As above PSurgHx: Cystoscopy to monitor kidney lesion, unchanged FamHx: Stents a family history of cancers - Mom-uterine ca, dad-skin ca, sister- bladder and throat ca SocHx: Never smoke. No drug. Former drinker. Medications: Refer to MAR All: NKDA Review of Systems - Review of Systems All systems: reviewed and no additional remarkable complaints except Past Patient History - Infectious Disease Hx of Infectious Diseases: None - Past Social History Smoking Status: Former Smoker - CARDIAC Hx Cardiac Disorders: Yes - PULMONARY Hx Chronic Obstructive Pulmonary Disease (COPD): Yes (sees dr telles) - NEUROLOGICAL Hx Paralysis: No - HEENT Hx HEENT Problems: Yes (eyeglasses) - HEMATOLOGICAL/ONCOLOGICAL Hx Blood Transfusions: No Hx Blood Transfusion Reaction: No - INTEGUMENTARY Hx Dermatological Problems: Yes Other/Comment: multiple tatoos, slight redness both feet, +1 edema right foot, blue dye to both feet and knuckles from pt's blanket ,redness to 4th knuckle right hand, edema to both hands, scar right scientology from benign skin lesion removal - MUSCULOSKELETAL/RHEUMATOLOGICAL Hx Falls: No - GASTROINTESTINAL Other/Comment: colonoscopy with 2 polyps removed - PSYCHIATRIC Hx Anxiety: Yes Hx Depression: Yes Hx Substance Use: No - SURGICAL HISTORY Other/Comment: small mass removed from back - ANESTHESIA Hx Anesthesia: Yes Hx Anesthesia Reactions: No Hx Malignant Hyperthermia: No Meds Allergies/Adverse Reactions: Allergies Allergy/AdvReac Type Severity Reaction Status Date / Time No Known Allergies Allergy Verified 01/05/13 11:27 - Medications Medications: Current Medications Acetaminophen (Tylenol 325mg Tab) 650 mg PO Q6H PRN PRN Reason: Pain, Mild (1-3) Atorvastatin Calcium (Lipitor) 10 mg PO HS [facility] Colchicine (Colocrys) 0.6 mg PO DAILY [facility] Last Admin: 04/25/18 09:09 Dose: 0.6 mg Vancomycin HCl 1.5 gm/ Sodium (Chloride) 500 mls @ 167 mls/hr IVPB Q12H [facility]; Protocol Last Admin: 04/25/18 11:46 Dose: 167 mls/hr Piperacillin Sod/Tazobactam Sod (Zosyn 3.375 In Ns 100ml) 100 mls @ 25 mls/hr IVPB Q8 [facility]; Protocol Stop: 05/02/18 06:31 Last Admin: 04/25/18 08:25 Dose: 25 mls/hr Levalbuterol HCl (Xopenex) 0.63 mg IH TIDRESP PRN PRN Reason: Shortness of Breath Metoprolol Tartrate (Lopressor) 50 mg PO BID [facility] Last Admin: 04/25/18 09:09 Dose: 50 mg Paroxetine HCl (Paxil) 10 mg PO DAILY [facility] Last Admin: 04/25/18 09:09 Dose: 10 mg Rivaroxaban (Xarelto) 20 mg PO DAILY [facility]; Protocol Last Admin: 04/25/18 09:09 Dose: 20 mg Tramadol HCl (Ultram) 50 mg PO Q6H PRN PRN Reason: Pain, moderate (4-7) Verapamil HCl (Calan Sr Tab) 240 mg PO DAILY [facility] Last Admin: 04/25/18 09:09 Dose: 240 mg Physical Exam - Head Exam Head Exam: ATRAUMATIC, NORMOCEPHALIC - Eye Exam Eye Exam: EOMI - ENT Exam ENT Exam: Mucous Membranes Moist - Respiratory Exam Respiratory Exam: Clear to Auscultation Bilateral. absent: Wheezes - Cardiovascular Exam Cardiovascular Exam: RRR, +S1, +S2 - GI/Abdominal Exam GI & Abdominal Exam: Normal Bowel Sounds, Soft. absent: Tenderness - Extremities Exam Extremities exam: Negative for: calf tenderness, pedal edema Additional comments: Right knee mildly tender following arthrocentesis of the knee. With FROM. - Neurological Exam Neurological exam: Alert, Oriented x3 - Psychiatric Exam Psychiatric exam: Normal Mood - Skin Skin Exam: Dry, Warm Results - Vital Signs Recent Vital Signs: Last Vital Signs Temp 98.4 F 04/25/18 06:00 Pulse 74 04/25/18 06:00 Resp 20 04/25/18 06:00 BP 142/96 H 04/25/18 06:00 Pulse Ox 97 04/25/18 06:00 - Labs Result Diagrams: 04/25/18 07:00 04/25/18 07:00 Labs: Laboratory Results - last 24 hr 04/24/18 04/24/18 04/25/18 10:51 16:00 07:00 WBC 14.8 H RBC 4.62 Hgb 14.0 Hct 42.8 MCV 92.6 MCH 30.3 MCHC 32.7 RDW 13.4 Plt Count 215 MPV 10.8 Sodium Potassium Chloride Carbon Dioxide Anion Gap BUN Creatinine Est GFR ( Amer) Est GFR (Non-Af Amer) Random Glucose Calcium Total Bilirubin AST ALT Alkaline Phosphatase C-React Prot High Sens > 15.00 H Total Protein Albumin Globulin Albumin/Globulin Ratio Fluid Source Peritoneal Fluid Appearance Turbid Fluid WBC 88190.0 H Fluid RBC 04818.0 H Fluid Tot Cell Count 100 H Fluid Mononuclear Cell 8.6 H Fl Polymorphonucl Cell 91.4 H Fluid Comment TEST NOT PERFORMED 04/25/18 07:00 WBC RBC Hgb Hct MCV MCH MCHC RDW Plt Count MPV Sodium 136 Potassium 4.7 Chloride 107 Carbon Dioxide 23 Anion Gap 11 BUN 28 H Creatinine 1.0 Est GFR ( Amer) > 60 Est GFR (Non-Af Amer) > 60 Random Glucose 143 H Calcium 9.1 Total Bilirubin 0.5 AST 24 ALT 17 Alkaline Phosphatase 105 C-React Prot High Sens Total Protein 7.1 Albumin 3.6 Globulin 3.5 Albumin/Globulin Ratio 1.0 L Fluid Source Fluid Appearance Fluid WBC Fluid RBC Fluid Tot Cell Count Fluid Mononuclear Cell Fl Polymorphonucl Cell Fluid Comment Assessment & Plan - Assessment and Plan (Free Text) Assessment: 67-year-old male with past medical history of rheumatoid arthritis, A. fib, anxiety depression, COPD, presents with right knee pain and swelling. R/o septic joint. Arthrocentesis with right knee cultures sent out, WBC of 64,000 Follow-up septic workup Continue with Vanc and Zosyn Follow-up with orthopedic recs Continue to monitor for any changes Case and plan was reviewed and discussed with Dr. Hall <Lauri Hall - Last Filed: 04/25/18 15:59> Meds - Medications Medications: Current Medications Acetaminophen (Tylenol 325mg Tab) 650 mg PO Q6H PRN PRN Reason: Pain, Mild (1-3) Atorvastatin Calcium (Lipitor) 10 mg PO HS [facility] Colchicine (Colocrys) 0.6 mg PO DAILY [facility] Last Admin: 04/25/18 09:09 Dose: 0.6 mg Vancomycin HCl 1.5 gm/ Sodium (Chloride) 500 mls @ 167 mls/hr IVPB Q12H [facility]; Protocol Last Admin: 04/25/18 11:46 Dose: 167 mls/hr Piperacillin Sod/Tazobactam Sod (Zosyn 3.375 In Ns 100ml) 100 mls @ 25 mls/hr IVPB Q8 [facility]; Protocol Stop: 05/02/18 06:31 Last Admin: 04/25/18 15:33 Dose: 25 mls/hr Levalbuterol HCl (Xopenex) 0.63 mg IH TIDRESP PRN PRN Reason: Shortness of Breath Metoprolol Tartrate (Lopressor) 50 mg PO BID [facility] Last Admin: 04/25/18 09:09 Dose: 50 mg Paroxetine HCl (Paxil) 10 mg PO DAILY [facility] Last Admin: 04/25/18 09:09 Dose: 10 mg Rivaroxaban (Xarelto) 20 mg PO DAILY [facility]; Protocol Last Admin: 04/25/18 09:09 Dose: 20 mg Tramadol HCl (Ultram) 50 mg PO Q6H PRN PRN Reason: Pain, moderate (4-7) Verapamil HCl (Calan Sr Tab) 240 mg PO DAILY [facility] Last Admin: 04/25/18 09:09 Dose: 240 mg Results - Vital Signs Recent Vital Signs: Last Vital Signs Temp 98.4 F 04/25/18 06:00 Pulse 74 04/25/18 06:00 Resp 20 04/25/18 06:00 BP 142/96 H 04/25/18 06:00 Pulse Ox 97 04/25/18 06:00 - Labs Result Diagrams: 04/25/18 07:00 04/25/18 07:00 Labs: Laboratory Results - last 24 hr 04/24/18 04/24/18 04/25/18 10:51 16:00 07:00 WBC 14.8 H RBC 4.62 Hgb 14.0 Hct 42.8 MCV 92.6 MCH 30.3 MCHC 32.7 RDW 13.4 Plt Count 215 MPV 10.8 Sodium Potassium Chloride Carbon Dioxide Anion Gap BUN Creatinine Est GFR ( Amer) Est GFR (Non-Af Amer) Random Glucose Calcium Total Bilirubin AST ALT Alkaline Phosphatase C-React Prot High Sens > 15.00 H Total Protein Albumin Globulin Albumin/Globulin Ratio Fluid Source Peritoneal Fluid Appearance Turbid Fluid WBC 40581.0 H Fluid RBC 33832.0 H Fluid Tot Cell Count 100 H Fluid Mononuclear Cell 8.6 H Fl Polymorphonucl Cell 91.4 H Fluid Comment TEST NOT PERFORMED 04/25/18 07:00 WBC RBC Hgb Hct MCV MCH MCHC RDW Plt Count MPV Sodium 136 Potassium 4.7 Chloride 107 Carbon Dioxide 23 Anion Gap 11 BUN 28 H Creatinine 1.0 Est GFR ( Amer) > 60 Est GFR (Non-Af Amer) > 60 Random Glucose 143 H Calcium 9.1 Total Bilirubin 0.5 AST 24 ALT 17 Alkaline Phosphatase 105 C-React Prot High Sens Total Protein 7.1 Albumin 3.6 Globulin 3.5 Albumin/Globulin Ratio 1.0 L Fluid Source Fluid Appearance Fluid WBC Fluid RBC Fluid Tot Cell Count Fluid Mononuclear Cell Fl Polymorphonucl Cell Fluid Comment Assessment & Plan - Assessment and Plan (Free Text) Assessment: Infectious diseases Attending Physician Attestation Patient seen and examined, discussed with emergency medical service coordinator. I have reviewed the patient's history of present illness, past medical, social, personal and family histories, pertinent physical exam findings, course so far in this hospital admission, pertinent laboratory and imaging results. I agree with the above findings, assessment and plan. In addition, started patient on Vancomycin and Zosyn for right knee arthritis with effusion, R/O septic arthritis R/O crystal- induced arthritis, R/O rheumatoid arthritis.
--- NOTE | 2018-04-25 15:40 | MRI ---
Date of service: 04/25/2018 PROCEDURE: MRI Right Knee with and without contrast HISTORY: Pain. COMPARISON: None available. TECHNIQUE: Multiecho multiplanar sequences were performed through the right knee. 20 cc of Omniscan FINDINGS: ANTERIOR CRUCIATE LIGAMENT:: Chronically torn and atrophic. POSTERIOR CRUCIATE LIGAMENT:: Intact. MEDIAL MENISCUS:: The posterior horn and body of the medial meniscus are atrophic. There is also thinning of the articular cartilage in narrowing of the joint space with osteophyte formation LATERAL MENISCUS:: Abnormal signal intensity is seen throughout the lateral meniscus consistent with chronic degeneration or chronic tear. The anterior horn appears atrophic. There narrowing of the joint space and thinning of the articular cartilage with osteophyte formation. MEDIAL COLLATERAL LIGAMENT:: Intact. LATERAL COLLATERAL LIGAMENT COMPLEX:: Intact. QUADRICEPS TENDON:: Intact. PATELLAR TENDON:: Intact. CARTILAGE:: There is a bipartite patella. There thinning of the articular cartilage. JOINT FLUID:: There is a large joint effusion. There is enhancement of the synovial surfaces probably due to chronic inflammation. OSSEOUS STRUCTURES:: There is no bone marrow edema or enhancement to suggest osteomyelitis. OTHER FINDINGS: None. IMPRESSION: No evidence of osteomyelitis. Chronic degenerative changes. Large joint effusion
[2018-04-26] MEDS: Piperacillin/Tazobact 3.375 gm 100 ML IVPB SCH ×3 (06:25→23:52)
[2018-04-26 07:27] LABS: BASO # 0.06 K/mm3 (0.0-2.0); BASO % 0.4 % (0.0-3.0); EOS % 0.3 % (1.5-5.0); HEMOGLOBIN 12.6 g/dL (14.0-18.0); LYMPH # 1.4 (1.2-3.4); LYMPH % 9.3 % (22.0-35.0); MEAN CELL VOLUME 93.3 fl (80.0-105.0); MEAN CORPUSCULAR HEMOGLOBIN 30.1 pg (25.0-35.0); MEAN CORPUSCULAR HGB CONC 32.3 g/dl (31.0-37.0); MONO # 1.3 (0.1-0.6); MONO % 8.6 % (1.0-6.0); RBC 4.18 10^6/uL (3.5-6.1); RED CELL DISTRIBUTION WIDTH 13.6 % (11.5-14.5); WHITE BLOOD COUNT 15.5 10^3/uL (4.5-11.0)
[2018-04-26 07:59] LABS: ALB/GLOB RATIO 0.9 (1.1-1.8); ALT/SGPT 24 U/L (7-56); AST/SGOT 21 U/L (17-59); BLOOD UREA NITROGEN 23 mg/dL (7-21); CALCIUM 8.6 mg/dL (8.4-10.5); GFR NON-AFRICAN AMERICAN > 60
[2018-04-26] MEDS: Verapamil 240 mg ER Tab PO SCH (09:26)
[2018-04-26] MEDS: Vancomycin 1.5 GM in Sodium Chloride 0.9% 500 ML IVPB SCH ×2 (09:29→20:40)
--- NOTE | 2018-04-26 11:41 | CP.PCM.PN ---
<Librado Mcgee - Last Filed: 04/26/18 13:42> Subjective - Date & Time of Evaluation Date of Evaluation: 04/26/18 Time of Evaluation: 09:40 - Subjective Subjective: Infectious diseases progress note: Patient seen and examined at bedside. No acute events overnight. States that his R knee pain has improved. No other complaints. 12 point ROS performed however limited due to dementia Objective - Vital Signs/Intake and Output Vital Signs (last 24 hours): Temp Pulse Resp BP Pulse Ox 98.3 F 87 20 141/90 97 04/26/18 06:00 04/26/18 09:26 04/26/18 06:00 04/26/18 09:26 04/26/18 06:00 Intake and Output: 04/26/18 04/26/18 06:59 18:59 Intake Total 840 Output Total 1200 Balance -360 - Medications Medications: Current Medications Acetaminophen (Tylenol 325mg Tab) 650 mg PO Q6H PRN PRN Reason: Pain, Mild (1-3) Atorvastatin Calcium (Lipitor) 10 mg PO HS [facility] Last Admin: 04/25/18 22:30 Dose: 10 mg Colchicine (Colocrys) 0.6 mg PO DAILY [facility] Last Admin: 04/26/18 09:23 Dose: 0.6 mg Vancomycin HCl 1.5 gm/ Sodium (Chloride) 500 mls @ 167 mls/hr IVPB Q12H [facility]; Protocol Last Admin: 04/26/18 09:29 Dose: 167 mls/hr Piperacillin Sod/Tazobactam Sod (Zosyn 3.375 In Ns 100ml) 100 mls @ 25 mls/hr IVPB Q8 [facility]; Protocol Stop: 05/02/18 06:31 Last Admin: 04/26/18 06:25 Dose: 25 mls/hr Levalbuterol HCl (Xopenex) 0.63 mg IH TIDRESP PRN PRN Reason: Shortness of Breath Metoprolol Tartrate (Lopressor) 50 mg PO BID [facility] Last Admin: 04/26/18 09:26 Dose: 50 mg Paroxetine HCl (Paxil) 10 mg PO DAILY [facility] Last Admin: 04/26/18 09:22 Dose: 10 mg Rivaroxaban (Xarelto) 20 mg PO DAILY [facility]; Protocol Last Admin: 04/26/18 09:22 Dose: 20 mg Tramadol HCl (Ultram) 50 mg PO Q6H PRN PRN Reason: Pain, moderate (4-7) Verapamil HCl (Calan Sr Tab) 240 mg PO DAILY [facility] Last Admin: 04/26/18 09:26 Dose: 240 mg - Labs Labs: 04/26/18 07:00 04/26/18 07:00 - Constitutional Appears: No Acute Distress - Head Exam Head Exam: ATRAUMATIC, NORMOCEPHALIC - Eye Exam Eye Exam: EOMI, PERRL - ENT Exam ENT Exam: Mucous Membranes Moist - Respiratory Exam Respiratory Exam: Clear to Ausculation Bilateral (no r/r/w) - Cardiovascular Exam Cardiovascular Exam: REGULAR RHYTHM - GI/Abdominal Exam GI & Abdominal Exam: Soft - Neurological Exam Neurological Exam: Alert, Awake - Psychiatric Exam Psychiatric exam: Normal Mood - Skin Skin Exam: Dry, Warm Assessment and Plan - Assessment and Plan (Free Text) Assessment: 67-year-old male with past medical history of rheumatoid arthritis, A. fib, anxiety depression, COPD, presents with right knee pain and swelling. R/o septic joint. Arthrocentesis with right knee cultures sent out, WBC of 64,000, Joint fluid showed no crystals, awaiting final culture. Knee MRI showed no osteo with large effusions Follow-up septic workup Continue with Vanc and Zosyn Follow-up with orthopedic recs Continue to monitor for any changes Case and plan was reviewed and discussed with Dr. Hall <Lauri Hall - Last Filed: 04/26/18 15:29> Objective - Vital Signs/Intake and Output Vital Signs (last 24 hours): Temp Pulse Resp BP Pulse Ox 98.8 F 70 20 132/88 98 04/26/18 14:00 04/26/18 14:00 04/26/18 14:00 04/26/18 14:00 04/26/18 14:00 Intake and Output: 04/26/18 04/26/18 06:59 18:59 Intake Total 840 Output Total 1200 Balance -360 - Medications Medications: Current Medications Acetaminophen (Tylenol 325mg Tab) 650 mg PO Q6H PRN PRN Reason: Pain, Mild (1-3) Atorvastatin Calcium (Lipitor) 10 mg PO HS [facility] Last Admin: 04/25/18 22:30 Dose: 10 mg Colchicine (Colocrys) 0.6 mg PO DAILY [facility] Last Admin: 04/26/18 09:23 Dose: 0.6 mg Vancomycin HCl 1.5 gm/ Sodium (Chloride) 500 mls @ 167 mls/hr IVPB Q12H [facility]; Protocol Last Admin: 04/26/18 09:29 Dose: 167 mls/hr Piperacillin Sod/Tazobactam Sod (Zosyn 3.375 In Ns 100ml) 100 mls @ 25 mls/hr IVPB Q8 [facility]; Protocol Stop: 05/02/18 06:31 Last Admin: 04/26/18 13:16 Dose: 25 mls/hr Levalbuterol HCl (Xopenex) 0.63 mg IH TIDRESP PRN PRN Reason: Shortness of Breath Metoprolol Tartrate (Lopressor) 50 mg PO BID [facility] Last Admin: 04/26/18 09:26 Dose: 50 mg Paroxetine HCl (Paxil) 10 mg PO DAILY [facility] Last Admin: 04/26/18 09:22 Dose: 10 mg Rivaroxaban (Xarelto) 20 mg PO DAILY [facility]; Protocol Last Admin: 04/26/18 09:22 Dose: 20 mg Tramadol HCl (Ultram) 50 mg PO Q6H PRN PRN Reason: Pain, moderate (4-7) Verapamil HCl (Calan Sr Tab) 240 mg PO DAILY [facility] Last Admin: 04/26/18 09:26 Dose: 240 mg - Labs Labs: 04/26/18 07:00 04/26/18 07:00 Assessment and Plan - Assessment and Plan (Free Text) Assessment: Infectious diseases Attending Physician Attestation Patient seen and examined, discussed with medical apparatus model maker. I have reviewed the patient's history of present illness, past medical, social, personal and family histories, pertinent physical exam findings, course so far in this hospital admission, pertinent laboratory and imaging results. I agree with the above findings, assessment and plan. In addition, continue Vancomycin and Zosyn for patient with right knee inflammatory arthritis R/O septic arthritis - follow up final synovial fluid culture results.
[2018-04-26 15:02] VITALS: O2SAT 98
--- NOTE | 2018-04-26 19:49 | PN ---
DATE: 04/26/2018 SUBJECTIVE: The patient has no complaints of any headaches or dizziness. No nausea or vomiting. PHYSICAL EXAMINATION: VITAL SIGNS: Temperature 98.8, pulse of 70, blood pressure 132/88, and respirations 20. GENERAL: The patient is lying in bed, flat, comfortable. HEENT: No oral lesion. Anicteric sclerae. Moist mucosa. NECK: No JVD, adenopathy, or thyromegaly. CARDIOVASCULAR: S1 and S2, regular. No murmurs, rubs, or gallops. LUNGS: Clear to auscultation bilaterally. No wheeze, rales, or rhonchi. ABDOMEN: Bowel sounds are positive, soft, nontender and nondistended. EXTREMITIES: No cyanosis, clubbing or edema. LABORATORY DATA: White count of 15.5 and hemoglobin 12.6. Creatinine 1.0. ASSESSMENT: 1. Right knee effusion, status post arthrocentesis. 2. Rheumatoid arthritis. 3. Anxiety. 4. Chronic obstructive pulmonary disease. 5. Obese. 6. Dyslipidemia. 7. Atrial fibrillation. PLAN: The patient is currently on verapamil is going to continue Lipitor for dyslipidemia, he is on metoprolol twice a day. The patient is on Paxil for his anxiety. The patient is on tramadol for pain. He is on Xarelto for his atrial fibrillation. The patient is on Zosyn for antibiotics. He had Gram stain that was done that showed no organisms. He says he is feeling better. His pain is better controlled. He is being followed by Infectious Disease, I appreciate their input. The patient had a MRI of the right knee, the report was reviewed by me and showed no evidence of osteomyelitis. There was chronic degenerative changes. The patient's fluid in the right knee was negative for crystals. There was red blood cells and neutrophils. The patient does not have a septic knee, but this is most likely from rheumatoid arthritis. We will speak with ID regarding the patient's antibiotics and for discharge planning. Kali Tran MD
[2018-04-26 22:56] VITALS: PULSE 77; RESP 18
[2018-04-27] MEDS: Piperacillin/Tazobact 3.375 gm 100 ML IVPB SCH (05:56)
[2018-04-27 07:47] LABS: BASO # 0.06 K/mm3 (0.0-2.0); BASO % 0.7 % (0.0-3.0); EOS # 0.3 (0.0-0.7); EOS % 3.8 % (1.5-5.0); HEMOGLOBIN 12.6 g/dL (14.0-18.0); LYMPH # 1.7 (1.2-3.4); LYMPH % 20.3 % (22.0-35.0); MEAN CELL VOLUME 93.1 fl (80.0-105.0); MEAN CORPUSCULAR HEMOGLOBIN 30.1 pg (25.0-35.0); MEAN CORPUSCULAR HGB CONC 32.3 g/dl (31.0-37.0); MEAN PLATELET VOLUME 10.8 fl (7.0-11.0); MONO # 1.1 (0.1-0.6); MONO % 13.8 % (1.0-6.0); RBC 4.19 10^6/uL (3.5-6.1); RED CELL DISTRIBUTION WIDTH 13.6 % (11.5-14.5); WHITE BLOOD COUNT 8.2 10^3/uL (4.5-11.0)
[2018-04-27 08:07] LABS: ALB/GLOB RATIO 0.9 (1.1-1.8); ALBUMIN 2.9 g/dL (3.0-4.8); ALT/SGPT 30 U/L (7-56); AST/SGOT 24 U/L (17-59); BLOOD UREA NITROGEN 19 mg/dL (7-21); CALCIUM 8.5 mg/dL (8.4-10.5); GFR NON-AFRICAN AMERICAN > 60
[2018-04-27 08:12] VITALS: BP 124/85; TEMP 98
--- NOTE | 2018-04-27 08:24 | CP.PCM.PN ---
<Librado Mcgee - Last Filed: 04/27/18 12:28> Subjective - Date & Time of Evaluation Date of Evaluation: 04/27/18 Time of Evaluation: 07:20 - Subjective Subjective: Infectious diseases progress note: Patient seen and examined at bedside. No acute events overnight. R knee pain has improved. No complaints. 12 point ROS performed and neg other than stated above Objective - Vital Signs/Intake and Output Vital Signs (last 24 hours): Temp Pulse Resp BP Pulse Ox 98 F 77 18 124/85 98 04/27/18 06:00 04/27/18 06:00 04/27/18 06:00 04/27/18 06:00 04/27/18 06:00 Intake and Output: 04/27/18 04/27/18 06:59 18:59 Intake Total 1020 Balance 1020 - Medications Medications: Current Medications Acetaminophen (Tylenol 325mg Tab) 650 mg PO Q6H PRN PRN Reason: Pain, Mild (1-3) Atorvastatin Calcium (Lipitor) 10 mg PO HS [facility] Last Admin: 04/26/18 23:53 Dose: 10 mg Colchicine (Colocrys) 0.6 mg PO DAILY [facility] Last Admin: 04/26/18 09:23 Dose: 0.6 mg Vancomycin HCl 1.5 gm/ Sodium (Chloride) 500 mls @ 167 mls/hr IVPB Q12H [facility]; Protocol Last Admin: 04/26/18 20:40 Dose: 167 mls/hr Piperacillin Sod/Tazobactam Sod (Zosyn 3.375 In Ns 100ml) 100 mls @ 25 mls/hr IVPB Q8 [facility]; Protocol Stop: 05/02/18 06:31 Last Admin: 04/27/18 05:56 Dose: 25 mls/hr Levalbuterol HCl (Xopenex) 0.63 mg IH TIDRESP PRN PRN Reason: Shortness of Breath Metoprolol Tartrate (Lopressor) 50 mg PO BID [facility] Last Admin: 04/26/18 18:07 Dose: 50 mg Paroxetine HCl (Paxil) 10 mg PO DAILY [facility] Last Admin: 04/26/18 09:22 Dose: 10 mg Rivaroxaban (Xarelto) 20 mg PO DAILY [facility]; Protocol Last Admin: 04/26/18 09:22 Dose: 20 mg Tramadol HCl (Ultram) 50 mg PO Q6H PRN PRN Reason: Pain, moderate (4-7) Verapamil HCl (Calan Sr Tab) 240 mg PO DAILY [facility] Last Admin: 04/26/18 09:26 Dose: 240 mg - Labs Labs: 04/27/18 07:30 04/27/18 07:30 - Constitutional Appears: No Acute Distress - Head Exam Head Exam: ATRAUMATIC, NORMOCEPHALIC - Eye Exam Eye Exam: EOMI - Respiratory Exam Respiratory Exam: Clear to Ausculation Bilateral. absent: Rales, Rhonchi, Wheezes - Cardiovascular Exam Cardiovascular Exam: REGULAR RHYTHM. absent: +S1, +S2 - Extremities Exam Extremities Exam: absent: Calf Tenderness, Pedal Edema Additional comments: R knee non tender to palpation no erythema, mild edema Assessment and Plan - Assessment and Plan (Free Text) Assessment: 67-year-old male with past medical history of rheumatoid arthritis, A. fib, anxiety depression, COPD, presents with right knee pain and swelling. R/o septic joint. Arthrocentesis- Joint fluid showed no crystals, awaiting final culture. likely inflammatory arthritis, and less likely septic arthritis - D/c abx Knee MRI showed no osteo with large effusions D/c Vanc and Zosyn Follow-up with orthopedic recs Continue to monitor Case and plan was reviewed and discussed with Dr. Hall <Lauri Hall - Last Filed: 04/27/18 18:34> Objective - Vital Signs/Intake and Output Vital Signs (last 24 hours): Temp Pulse Resp BP Pulse Ox 98 F 77 18 124/85 98 04/27/18 06:00 04/27/18 09:33 04/27/18 06:00 04/27/18 09:33 04/27/18 06:00 Intake and Output: 04/27/18 04/27/18 06:59 18:59 Intake Total 1020 Balance 1020 - Labs Labs: 04/27/18 07:30 04/27/18 07:30 Assessment and Plan - Assessment and Plan (Free Text) Assessment: Infectious diseases Attending Physician Attestation Patient seen and examined, discussed with medical staff director. I have reviewed the patient's history of present illness, past medical, social, personal and family histories, pertinent physical exam findings, course so far in this hospital admission, pertinent laboratory and imaging results. I agree with the above findings, assessment and plan. In addition, we discussed with Dr. Chandler and Dr. Mcghee - probably inflammatory right knee arthritis from rheumatoid arthritis. Synovial fluid cultures are negative - we can d/c antibiotics and patient will follow up with PMD and Plastic Joint Maker as an outpatient.
[2018-04-27] MEDS: Vancomycin 1.5 GM in Sodium Chloride 0.9% 500 ML IVPB SCH (08:54)
[2018-04-27] MEDS: Verapamil 240 mg ER Tab PO SCH (09:32)
--- NOTE | 2018-04-27 10:47 | PN ---
DATE: 04/27/2018 SUBJECTIVE: The patient has no complaints of any chest pain. No shortness of breath or headaches. No dizziness. PHYSICAL EXAMINATION VITAL SIGNS: Temperature is 98, pulse is 77, blood pressure 124/85 and respirations 18. GENERAL: The patient is lying in bed, flat, comfortable. HEENT: No oral lesion. Anicteric sclerae. Moist mucosa. NECK: No JVD, adenopathy, or thyromegaly. CARDIOVASCULAR: S1 and S2, regular. No murmurs, rubs, or gallops. LUNGS: Clear to auscultation bilaterally. No wheeze, rales, or rhonchi. ABDOMEN: Bowel sounds are positive, soft, nontender and nondistended. EXTREMITIES: No cyanosis, clubbing or edema. LABORATORY DATA: White count of 8.2 and hemoglobin 12.6. Creatinine is 1.0. ASSESSMENT: 1. Right knee effusion, status post arthrocentesis. 2. Rheumatoid arthritis. 3. Anxiety. 4. Chronic obstructive pulmonary disease. 5. Obese. 6. Dyslipidemia. 7. Atrial fibrillation, on anticoagulation. PLAN: The patient is currently feels well. He has cultures that have been negative. His right effusion was secondary to rheumatoid arthritis. The patient will be discharged. I will speak to ID about changing the patient over to oral antibiotics. He is on Lipitor for dyslipidemia. He is on verapamil for his hypertension. The patient had colchicine. He is on Ultram. He is going to continue with Xarelto for his atrial fibrillation. He is going to continue with his anticoagulation for his atrial fibrillation. The patient is on a heart healthy diet. Kali Tran MD
== END 2018-04-27 14:15 | disposition home or self-care (01) ==
LOC: ED 09:35 → INTOOBSV 13:34 → ERH 13:34 → 5RSO 04-25 01:14
PROVIDERS: ADMIT Internal Medicine Nephrology; ATTEND Internal Medicine Nephrology
DX: M17.11 Unilateral primary osteoarthritis, right knee (principal); M25.461 Effusion, right knee; I73.00 Raynaud's syndrome without gangrene; I48.91 Unspecified atrial fibrillation; J44.9 Chronic obstructive pulmonary disease, unspecified; I10 Essential (primary) hypertension; E78.5 Hyperlipidemia, unspecified; M06.9 Rheumatoid arthritis, unspecified; E66.9 Obesity, unspecified; Z79.01 Long term (current) use of anticoagulants; F41.9 Anxiety disorder, unspecified; F32.9 Major depressive disorder, single episode, unspecified; Z87.891 Personal history of nicotine dependence
CPT/HCPCS: 20610; 36415; 73560; 73723; 80053; 83735; 84100; 84560; 85025; 85027; 85651; 86140; 87070; 89051; 89060; 97161; 97530; 99284; A9579; G0378; G8978; G8979; J2543; J7030; J7040